=== PATIENT | male | born 1960 | race Caucasian/White ===

== ENCOUNTER 2020-01-11 08:11 | Inpatient (IN) | payer MEDICAID, OTHER ==
[~2020-01-11] VITALS: Ht 175.3 cm; Wt 82.6 kg
[2020-01-11 08:41] LABS: BASOPHILS % (AUTO) 0.4 % (0.0-2.0); EOSINOPHILS % (AUTO) 1.2 % (1.0-6.0); HEMATOCRIT 42.5 % (41-53); HEMOGLOBIN 14.9 g/dL (13.5-17.5); LYMPHOCYTES % (AUTO) 11.2 % (22.0-44.0); MEAN CORPUSCULAR HEMOGLOBIN 32.5 pg (26.0-34.0); MEAN CORPUSCULAR HGB CONC 34.9 G/dL (31.0-37.0); MEAN CORPUSCULAR VOLUME 93 fL (80-100); MONOCYTES # (AUTO) 0.8 K/uL (0.1-1.0); MONOCYTES % (AUTO) 9.4 % (2.0-9.0); NEUTROPHILS # (AUTO) 6.8 K/uL (1.8-7.7); NEUTROPHILS % (AUTO) 77.8 % (40.0-70.0); PLATELET COUNT (AUTO) 189 K/uL (150-450); RED BLOOD CELL COUNT(AUTO) 4.57 MIL/uL (4.50-5.90); RED CELL DISTRIBUTION WIDTH 12.8 % (11.5-14.5)
[2020-01-11 08:53] LABS: ANION GAP 11 mmol/L (8-16); CALCIUM, TOTAL 9.6 mg/dL (8.8-10.5); CARBON DIOXIDE 26 mmol/L (22-29); CHLORIDE 103 mmol/L (98-107); CREATININE 1.31 mg/dL (0.60-1.30); GLOMERULAR FILTR. RATE CALC 56 mL/min (>60); GLUCOSE,RANDOM 155 mg/dL (70-110); POTASSIUM 3.9 mmol/L (3.5-5.1); SODIUM SERUM 140 mmol/L (136-145); UREA NITROGEN, BLOOD 21 mg/dL (7-18)
[2020-01-11 08:59] LABS: ALANINE AMINOTRANSFERASE 24 U/L (12-78); ALBUMIN 3.7 g/dL (3.4-5.0); ALKALINE PHOSPHATASE 65 U/L (46-116); ASPARTATE AMINOTRANSFERASE 18 U/L (15-37); BILIRUBIN,TOTAL 0.7 mg/dL (0.1-1.0); TOTAL PROTEIN, SERUM 7.8 g/dL (6.4-8.2)
[2020-01-11] MEDS ORDERED: SODIUM CHLORIDE 0.9% 1,000 ML IV ONE (09:00)
[2020-01-11 09:18] LABS: CREATINE KINASE, TOTAL ONLY 45 U/L (39-308)
[2020-01-11 11:54] LABS: AMPHET/METH SCREEN,URINE NEGATIVE (NEGATIVE); BARBITURATE SCREEN, URINE NEGATIVE (NEGATIVE); BENZODIAZEPINES SCREEN,URINE NEGATIVE (NEGATIVE); CANNABINOID SCREEN,URINE NEGATIVE (NEGATIVE); COCAINE SCREEN,URINE NEGATIVE (NEGATIVE); METHADONE SCREEN, URINE NEGATIVE (NEGATIVE); OPIATE SCREEN,URINE NEGATIVE (NEGATIVE); PHENCYCLIDINE SCREEN,URINE NEGATIVE (NEGATIVE)
[2020-01-11] MEDS ORDERED: MetroNIDAZOLE 500 MG/NACL 100 ML IV ONE (12:15)
[2020-01-11] MEDS ORDERED: CefTRIAXone 1 GM/DEXTROSE 50 ML IV ONE (12:15)
[2020-01-11 12:30] LABS: APPEARANCE,URINE CLEAR (CLEAR); BILIRUBIN,URINE NEGATIVE (NEGATIVE); GLUCOSE, URINE (UA) NEGATIVE (NEGATIVE); KETONES,URINE TRACE mg/dL (NEGATIVE); LEUKOCYTE ESTERASE ,URINE NEGATIVE (NEGATIVE); NITRATE,URINE NEGATIVE (NEGATIVE); OCCULT BLOOD,URINE NEGATIVE (NEGATIVE); PH,URINE 6.5 (5.0-8.0); PROTEIN,URINE NEGATIVE (NEGATIVE)
[2020-01-11 12:47] LABS: BACTERIA,URINE None Seen /HPF (None Seen); RBC,URINE None Seen /HPF (0-2); WBC,URINE None Seen /HPF (0-5)
[2020-01-12] MEDS: ZOLPIDEM TARTRATE 10 MG TABLET PO PRN ×2 (00:32→22:36)
[2020-01-12] MEDS: LORazepam 2 MG TABLET PO PRN ×2 (01:28→17:47)
[2020-01-12 01:59] VITALS: BP 146/90
[2020-01-12] MEDS ORDERED: ALBUTEROL SULFATE HFA 90 MCG/PUFF 8 GM INHALER IH PRN (07:15)
[2020-01-12] MEDS ORDERED: DEXTROSE 50%-WATER 25 GM/50 ML SYRINGE IVP PRN (07:15)
[2020-01-12] MEDS ORDERED: OMEPRAZOLE 20 MG CAPSULE PO PRN (07:15)
[2020-01-12] MEDS ORDERED: DOCUSATE SODIUM 100 MG CAPSULE PO PRN (07:15)
[2020-01-12] MEDS ORDERED: BENZOCAINE/MENTHOL LOZENGE PO PRN (07:15)
[2020-01-12] MEDS ORDERED: BACITRACIN 28 GM OINTMENT TP PRN (07:15)
[2020-01-12] MEDS ORDERED: CloNIDine HCL 0.1 MG TABLET PO PRN (07:15)
[2020-01-12] MEDS ORDERED: MAG HYDROX/AL HYDROX/SIMETH ES 30 ML SUSPENSION UDCUP PO PRN (07:15)
[2020-01-12 07:19] LABS: CHOL/HDL RATIO 2.4 (4.2-7.3)
[2020-01-12] MEDS: LISINOPRIL 10 MG TABLET PO SCH (08:39)
[2020-01-12] MEDS: ASPIRIN 81 MG EC TABLET PO SCH (08:39)
[2020-01-12] MEDS: METOPROLOL TARTRATE 25 MG TABLET PO SCH ×2 (08:39→16:09)
[2020-01-12 08:48] VITALS: BP 175/72
[2020-01-12 11:34] LABS: GLUCOMETER DEV NAME(LOC) 3E.I 2; GLUCOSE,POINT OF CARE 116 MG/DL (70-110)
[2020-01-12] MEDS: INSULIN LISPRO 100 UNITS/ML SQ PRN ×2 (11:47→17:58)
[2020-01-12 16:04] VITALS: BP 182/101
[2020-01-12 17:15] VITALS: BP 153/98
[2020-01-12 17:20] LABS: GLUCOMETER DEV NAME(LOC) 3E.I 2; GLUCOSE,POINT OF CARE 141 MG/DL (70-110)
[2020-01-12 18:47] VITALS: BP 150/85
[2020-01-12] MEDS: ATORVASTATIN CALCIUM 20 MG TABLET PO SCH (20:32)
[2020-01-12 20:59] LABS: GLUCOMETER DEV NAME(LOC) 3E.I 2; GLUCOSE,POINT OF CARE 109 MG/DL (70-110)
[2020-01-13 05:53] LABS: GLUCOMETER DEV NAME(LOC) 3E.I 2; GLUCOSE,POINT OF CARE 101 MG/DL (70-110)
[2020-01-13] MEDS: METOPROLOL TARTRATE 25 MG TABLET PO SCH ×2 (09:41→17:16)
[2020-01-13] MEDS: HALOPERIDOL 5 MG TABLET PO PRN (09:41)
[2020-01-13] MEDS: LORazepam 2 MG TABLET PO PRN (09:41)
[2020-01-13] MEDS: QUEtiapine FUMARATE 25 MG TABLET PO SCH ×2 (09:41→17:16)
[2020-01-13] MEDS: ASPIRIN 81 MG EC TABLET PO SCH (09:41)
[2020-01-13] MEDS: LISINOPRIL 10 MG TABLET PO SCH (09:41)
[2020-01-13 10:06] VITALS: BP 153/98
[2020-01-13 12:20] LABS: GLUCOMETER DEV NAME(LOC) 3E.I 2; GLUCOSE,POINT OF CARE 84 MG/DL (70-110)
[2020-01-13 16:06] VITALS: BP_SYST 143; BP_SYST 173; BP_DIAS 81
[2020-01-13 17:31] LABS: GLUCOMETER DEV NAME(LOC) 3E.I 2; GLUCOSE,POINT OF CARE 87 MG/DL (70-110)
[2020-01-13] MEDS: ATORVASTATIN CALCIUM 20 MG TABLET PO SCH (20:52)
[2020-01-13 21:09] LABS: GLUCOMETER DEV NAME(LOC) 3E.I 2; GLUCOSE,POINT OF CARE 93 MG/DL (70-110)
[2020-01-14 05:45] LABS: GLUCOMETER DEV NAME(LOC) 3E.I 2; GLUCOSE,POINT OF CARE 79 MG/DL (70-110)
[2020-01-14 08:00] VITALS: BP 166/85
[2020-01-14] MEDS: ASPIRIN 81 MG EC TABLET PO SCH (08:57)
[2020-01-14] MEDS: LISINOPRIL 10 MG TABLET PO SCH (08:57)
[2020-01-14] MEDS: QUEtiapine FUMARATE 25 MG TABLET PO SCH ×2 (08:57→16:34)
[2020-01-14] MEDS: METOPROLOL TARTRATE 25 MG TABLET PO SCH ×2 (08:57→16:34)
[2020-01-14 11:45] LABS: GLUCOMETER DEV NAME(LOC) 3E.I 2; GLUCOSE,POINT OF CARE 106 MG/DL (70-110)
[2020-01-14 16:58] LABS: GLUCOMETER DEV NAME(LOC) 3E.I 2; GLUCOSE,POINT OF CARE 88 MG/DL (70-110)
[2020-01-14 18:24] VITALS: BP 156/89
[2020-01-14] MEDS: ATORVASTATIN CALCIUM 20 MG TABLET PO SCH (20:28)
[2020-01-14 20:44] LABS: GLUCOMETER DEV NAME(LOC) 3E.I 2; GLUCOSE,POINT OF CARE 109 MG/DL (70-110)
[2020-01-15 05:45] LABS: GLUCOMETER DEV NAME(LOC) 3E.I 2; GLUCOSE,POINT OF CARE 88 MG/DL (70-110)
[2020-01-15 08:53] VITALS: BP 176/98
[2020-01-15] MEDS: LISINOPRIL 10 MG TABLET PO SCH (09:34)
[2020-01-15] MEDS: METOPROLOL TARTRATE 25 MG TABLET PO SCH ×2 (09:34→16:11)
[2020-01-15] MEDS: QUEtiapine FUMARATE 25 MG TABLET PO SCH ×2 (09:34→16:11)
[2020-01-15] MEDS: ASPIRIN 81 MG EC TABLET PO SCH (09:34)
[2020-01-15 12:05] LABS: GLUCOMETER DEV NAME(LOC) 3E.I 2; GLUCOSE,POINT OF CARE 108 MG/DL (70-110)
[2020-01-15 16:26] VITALS: BP 126/75
[2020-01-15 17:10] LABS: GLUCOMETER DEV NAME(LOC) 3E.I 2; GLUCOSE,POINT OF CARE 84 MG/DL (70-110)
[2020-01-15] MEDS: ATORVASTATIN CALCIUM 20 MG TABLET PO SCH (20:58)
[2020-01-15 21:14] LABS: GLUCOMETER DEV NAME(LOC) 3E.I 2; GLUCOSE,POINT OF CARE 100 MG/DL (70-110)
[2020-01-16] MEDS: ZOLPIDEM TARTRATE 10 MG TABLET PO PRN (00:14)
[2020-01-16 05:31] LABS: GLUCOMETER DEV NAME(LOC) 3E.I 2; GLUCOSE,POINT OF CARE 95 MG/DL (70-110)
[2020-01-16] MEDS: ASPIRIN 81 MG EC TABLET PO SCH (08:29)
[2020-01-16] MEDS: LISINOPRIL 10 MG TABLET PO SCH (08:29)
[2020-01-16] MEDS: METOPROLOL TARTRATE 25 MG TABLET PO SCH ×2 (08:30→17:07)
[2020-01-16] MEDS: QUEtiapine FUMARATE 25 MG TABLET PO SCH ×2 (08:30→17:07)
[2020-01-16 16:18] VITALS: BP 126/65
[2020-01-16 17:38] LABS: GLUCOMETER DEV NAME(LOC) 3E.I 2; GLUCOSE,POINT OF CARE 92 MG/DL (70-110)
[2020-01-16] MEDS: ATORVASTATIN CALCIUM 20 MG TABLET PO SCH (20:17)
[2020-01-16 20:43] LABS: GLUCOMETER DEV NAME(LOC) 3E.I 2; GLUCOSE,POINT OF CARE 143 MG/DL (70-110)
[2020-01-16] MEDS: INSULIN LISPRO 100 UNITS/ML SQ PRN (21:00)
[2020-01-16] MEDS: ONDANSETRON HCL 4 MG TABLET PO PRN (23:47)
[2020-01-17] MEDS: ZOLPIDEM TARTRATE 10 MG TABLET PO PRN (00:01)
[2020-01-17 08:00] VITALS: BP 172/93
[2020-01-17] MEDS: LORazepam 2 MG TABLET PO PRN (08:46)
[2020-01-17] MEDS: QUEtiapine FUMARATE 25 MG TABLET PO SCH ×2 (08:46→16:51)
[2020-01-17] MEDS: ASPIRIN 81 MG EC TABLET PO SCH (08:46)
[2020-01-17] MEDS: LISINOPRIL 10 MG TABLET PO SCH (08:46)
[2020-01-17] MEDS: METOPROLOL TARTRATE 25 MG TABLET PO SCH ×2 (08:46→16:51)
[2020-01-17] MEDS: HALOPERIDOL 5 MG TABLET PO PRN (08:47)
[2020-01-17 11:39] LABS: GLUCOMETER DEV NAME(LOC) 3E.I 2; GLUCOSE,POINT OF CARE 88 MG/DL (70-110)
[2020-01-17 16:52] VITALS: BP 125/69
[2020-01-17 17:04] LABS: GLUCOMETER DEV NAME(LOC) 3E.I 2; GLUCOSE,POINT OF CARE 81 MG/DL (70-110)
[2020-01-17] MEDS: ATORVASTATIN CALCIUM 20 MG TABLET PO SCH (20:32)
[2020-01-17 21:07] LABS: GLUCOMETER DEV NAME(LOC) 3E.I 2; GLUCOSE,POINT OF CARE 97 MG/DL (70-110)
[2020-01-18 04:04] VITALS: BP 131/71
[2020-01-18] MEDS: LORazepam 2 MG TABLET PO PRN (04:05)
[2020-01-18] MEDS: HALOPERIDOL 5 MG TABLET PO PRN (04:05)
[2020-01-18 05:40] LABS: GLUCOMETER DEV NAME(LOC) 3E.I 2; GLUCOSE,POINT OF CARE 85 MG/DL (70-110)
[2020-01-18 08:00] VITALS: BP 110/68
[2020-01-18] MEDS: METOPROLOL TARTRATE 25 MG TABLET PO SCH ×2 (11:09→17:00)
[2020-01-18] MEDS: ASPIRIN 81 MG EC TABLET PO SCH (11:09)
[2020-01-18] MEDS: LISINOPRIL 10 MG TABLET PO SCH (11:09)
[2020-01-18] MEDS: QUEtiapine FUMARATE 25 MG TABLET PO SCH ×2 (11:09→17:00)
[2020-01-18 11:39] LABS: GLUCOMETER DEV NAME(LOC) 3E.I 2; GLUCOSE,POINT OF CARE 81 MG/DL (70-110)
[2020-01-18 16:10] VITALS: BP 131/76
[2020-01-18 17:03] LABS: GLUCOMETER DEV NAME(LOC) 3E.I 2; GLUCOSE,POINT OF CARE 127 MG/DL (70-110)
[2020-01-18 20:58] LABS: GLUCOMETER DEV NAME(LOC) 3E.I 2; GLUCOSE,POINT OF CARE 92 MG/DL (70-110)
[2020-01-18] MEDS: ATORVASTATIN CALCIUM 20 MG TABLET PO SCH (21:01)
[2020-01-18] MEDS: ZOLPIDEM TARTRATE 10 MG TABLET PO PRN (21:11)
[2020-01-19 05:49] LABS: GLUCOMETER DEV NAME(LOC) 3E.I 2; GLUCOSE,POINT OF CARE 90 MG/DL (70-110)
[2020-01-19] MEDS: HALOPERIDOL 5 MG TABLET PO PRN (08:40)
[2020-01-19] MEDS: QUEtiapine FUMARATE 25 MG TABLET PO SCH ×2 (08:40→16:02)
[2020-01-19] MEDS: LORazepam 2 MG TABLET PO PRN (08:40)
[2020-01-19] MEDS: LISINOPRIL 10 MG TABLET PO SCH (08:40)
[2020-01-19] MEDS: ASPIRIN 81 MG EC TABLET PO SCH (08:40)
[2020-01-19] MEDS: METOPROLOL TARTRATE 25 MG TABLET PO SCH ×2 (08:41→16:02)
[2020-01-19 11:24] LABS: GLUCOMETER DEV NAME(LOC) 3E.I 2; GLUCOSE,POINT OF CARE 89 MG/DL (70-110)
[2020-01-19 13:36] VITALS: BP 124/76
[2020-01-19 16:31] VITALS: BP 151/76
[2020-01-19 17:25] LABS: GLUCOMETER DEV NAME(LOC) 3E.I 2; GLUCOSE,POINT OF CARE 87 MG/DL (70-110)
[2020-01-19] MEDS: ATORVASTATIN CALCIUM 20 MG TABLET PO SCH (20:00)
[2020-01-19] MEDS: INSULIN LISPRO 100 UNITS/ML SQ PRN (21:26)
[2020-01-19 21:30] LABS: GLUCOMETER DEV NAME(LOC) 3E.I 2; GLUCOSE,POINT OF CARE 157 MG/DL (70-110)
[2020-01-19] MEDS: ZOLPIDEM TARTRATE 10 MG TABLET PO PRN (22:20)
[2020-01-20 03:26] VITALS: BP 132/82
[2020-01-20] MEDS: LORazepam 2 MG TABLET PO PRN ×2 (03:29→08:48)
[2020-01-20] MEDS: HALOPERIDOL 5 MG TABLET PO PRN ×2 (03:29→08:48)
[2020-01-20 05:55] LABS: GLUCOMETER DEV NAME(LOC) 3E.I 2; GLUCOSE,POINT OF CARE 92 MG/DL (70-110)
[2020-01-20 08:00] VITALS: BP 152/74
[2020-01-20] MEDS: LISINOPRIL 10 MG TABLET PO SCH (08:47)
[2020-01-20] MEDS: METOPROLOL TARTRATE 25 MG TABLET PO SCH ×2 (08:48→16:17)
[2020-01-20] MEDS: ASPIRIN 81 MG EC TABLET PO SCH (08:48)
[2020-01-20] MEDS: QUEtiapine FUMARATE 25 MG TABLET PO SCH ×2 (08:48→16:17)
[2020-01-20 12:09] LABS: GLUCOMETER DEV NAME(LOC) 3E.I 2; GLUCOSE,POINT OF CARE 85 MG/DL (70-110)
[2020-01-20 16:57] VITALS: BP 143/56
[2020-01-20 17:19] LABS: GLUCOMETER DEV NAME(LOC) 3E.I 2; GLUCOSE,POINT OF CARE 109 MG/DL (70-110)
[2020-01-20] MEDS: ATORVASTATIN CALCIUM 20 MG TABLET PO SCH (20:53)
[2020-01-20 21:48] LABS: GLUCOMETER DEV NAME(LOC) 3E.I 2; GLUCOSE,POINT OF CARE 95 MG/DL (70-110)
[2020-01-21 05:28] LABS: GLUCOMETER DEV NAME(LOC) 3E.I 2; GLUCOSE,POINT OF CARE 84 MG/DL (70-110)
[2020-01-21] MEDS: INSULIN LISPRO 100 UNITS/ML SQ PRN ×2 (07:06→11:47)
[2020-01-21] MEDS: METOPROLOL TARTRATE 25 MG TABLET PO SCH ×2 (08:22→16:45)
[2020-01-21] MEDS: ASPIRIN 81 MG EC TABLET PO SCH (08:23)
[2020-01-21] MEDS: QUEtiapine FUMARATE 25 MG TABLET PO SCH ×2 (08:23→16:45)
[2020-01-21] MEDS: LORazepam 2 MG TABLET PO PRN (08:24)
[2020-01-21] MEDS: LISINOPRIL 20 MG TABLET PO SCH (08:27)
[2020-01-21] MEDS: LOPERAMIDE HCL 2 MG CAPSULE PO PRN ×2 (09:49→11:44)
[2020-01-21 10:31] VITALS: BP 129/68
[2020-01-21] MEDS: ONDANSETRON HCL 4 MG TABLET PO PRN (11:44)
[2020-01-21 11:54] LABS: GLUCOMETER DEV NAME(LOC) 3E.I 2; GLUCOSE,POINT OF CARE 95 MG/DL (70-110)
[2020-01-21 13:16] VITALS: BP 110/70
[2020-01-21 16:18] VITALS: BP 128/71
[2020-01-21 19:28] LABS: GLUCOMETER DEV NAME(LOC) 3E.I 2; GLUCOSE,POINT OF CARE 123 MG/DL (70-110)
[2020-01-21] MEDS: ATORVASTATIN CALCIUM 20 MG TABLET PO SCH (20:28)
[2020-01-21 22:11] LABS: GLUCOMETER DEV NAME(LOC) 3E.I 2; GLUCOSE,POINT OF CARE 91 MG/DL (70-110)
[2020-01-21] MEDS: IBUPROFEN 600 MG TABLET PO PRN (23:20)
[2020-01-22] MEDS: QUEtiapine FUMARATE 25 MG TABLET PO SCH ×2 (10:00→17:09)
[2020-01-22] MEDS: METOPROLOL TARTRATE 25 MG TABLET PO SCH ×2 (10:01→17:00)
[2020-01-22] MEDS: LISINOPRIL 20 MG TABLET PO SCH (10:01)
[2020-01-22] MEDS: ASPIRIN 81 MG EC TABLET PO SCH (10:02)
[2020-01-22 11:19] VITALS: BP 129/92
[2020-01-22 11:32] LABS: GLUCOMETER DEV NAME(LOC) 3E.I 2; GLUCOSE,POINT OF CARE 91 MG/DL (70-110)
[2020-01-22 16:42] VITALS: BP 100/57
[2020-01-22] MEDS: INSULIN LISPRO 100 UNITS/ML SQ PRN (17:46)
[2020-01-22] MEDS: ATORVASTATIN CALCIUM 20 MG TABLET PO SCH (20:05)
[2020-01-22 20:21] LABS: GLUCOMETER DEV NAME(LOC) 3E.I 2; GLUCOSE,POINT OF CARE 90 MG/DL (70-110)
[2020-01-23] MEDS: LORazepam 2 MG TABLET PO PRN (04:33)
[2020-01-23] MEDS: HALOPERIDOL 5 MG TABLET PO PRN (04:33)
[2020-01-23 05:59] LABS: GLUCOMETER DEV NAME(LOC) 3E.I 2; GLUCOSE,POINT OF CARE 96 MG/DL (70-110)
[2020-01-23 09:30] VITALS: BP 131/62
[2020-01-23] MEDS: LISINOPRIL 20 MG TABLET PO SCH (09:54)
[2020-01-23] MEDS: QUEtiapine FUMARATE 25 MG TABLET PO SCH ×2 (09:54→16:30)
[2020-01-23] MEDS: ASPIRIN 81 MG EC TABLET PO SCH (09:54)
[2020-01-23] MEDS: METOPROLOL TARTRATE 25 MG TABLET PO SCH ×2 (09:55→16:30)
[2020-01-23] MEDS: ONDANSETRON HCL 4 MG TABLET PO PRN (10:02)
[2020-01-23 12:09] LABS: GLUCOMETER DEV NAME(LOC) 3E.I 2; GLUCOSE,POINT OF CARE 110 MG/DL (70-110)
[2020-01-23 16:05] VITALS: BP 120/75
[2020-01-23 16:48] LABS: GLUCOMETER DEV NAME(LOC) 3E.I 2; GLUCOSE,POINT OF CARE 89 MG/DL (70-110)
[2020-01-23] MEDS: ATORVASTATIN CALCIUM 20 MG TABLET PO SCH (20:27)
[2020-01-23 21:28] LABS: GLUCOMETER DEV NAME(LOC) 3E.I 2; GLUCOSE,POINT OF CARE 90 MG/DL (70-110)
[2020-01-24] MEDS: LORazepam 2 MG TABLET PO PRN ×2 (03:37→18:37)
[2020-01-24] MEDS: HALOPERIDOL 5 MG TABLET PO PRN ×2 (03:37→18:40)
[2020-01-24 03:59] VITALS: BP 131/78
[2020-01-24 05:55] LABS: GLUCOMETER DEV NAME(LOC) 3E.I 2; GLUCOSE,POINT OF CARE 105 MG/DL (70-110)
[2020-01-24 09:12] VITALS: BP 140/87
[2020-01-24 09:14] VITALS: BP 111/68
[2020-01-24] MEDS: ASPIRIN 81 MG EC TABLET PO SCH (11:19)
[2020-01-24] MEDS: LISINOPRIL 20 MG TABLET PO SCH (11:19)
[2020-01-24] MEDS: METOPROLOL TARTRATE 25 MG TABLET PO SCH ×2 (11:19→17:00)
[2020-01-24] MEDS: QUEtiapine FUMARATE 25 MG TABLET PO SCH ×2 (11:19→16:28)
[2020-01-24 12:09] LABS: GLUCOMETER DEV NAME(LOC) 3E.I 2; GLUCOSE,POINT OF CARE 121 MG/DL (70-110)
[2020-01-24 16:32] LABS: GLUCOMETER DEV NAME(LOC) 3E.I 2; GLUCOSE,POINT OF CARE 88 MG/DL (70-110)
[2020-01-24 16:43] VITALS: BP 103/43
[2020-01-24] MEDS: ATORVASTATIN CALCIUM 20 MG TABLET PO SCH (20:15)
[2020-01-24] MEDS: INSULIN LISPRO 100 UNITS/ML SQ PRN (21:19)
[2020-01-25] MEDS: ZOLPIDEM TARTRATE 10 MG TABLET PO PRN (02:43)
[2020-01-25 06:30] LABS: GLUCOMETER DEV NAME(LOC) 3E.I 2; GLUCOSE,POINT OF CARE 81 MG/DL (70-110)
[2020-01-25 08:14] VITALS: BP 130/78
[2020-01-25] MEDS: LOPERAMIDE HCL 2 MG CAPSULE PO PRN (09:11)
[2020-01-25] MEDS: IBUPROFEN 600 MG TABLET PO PRN ×2 (09:11→22:03)
[2020-01-25] MEDS: LISINOPRIL 20 MG TABLET PO SCH (09:12)
[2020-01-25] MEDS: METOPROLOL TARTRATE 25 MG TABLET PO SCH ×2 (09:12→16:18)
[2020-01-25] MEDS: QUEtiapine FUMARATE 25 MG TABLET PO SCH ×2 (09:12→16:18)
[2020-01-25] MEDS: ASPIRIN 81 MG EC TABLET PO SCH (09:12)
[2020-01-25 11:59] LABS: GLUCOMETER DEV NAME(LOC) 3E.I 2; GLUCOSE,POINT OF CARE 86 MG/DL (70-110)
[2020-01-25 16:12] VITALS: BP 109/68
[2020-01-25 17:15] LABS: GLUCOMETER DEV NAME(LOC) 3E.I 2; GLUCOSE,POINT OF CARE 84 MG/DL (70-110)
[2020-01-25] MEDS: LORazepam 2 MG TABLET PO PRN (19:58)
[2020-01-25] MEDS: HALOPERIDOL 5 MG TABLET PO PRN (19:58)
[2020-01-25] MEDS: ATORVASTATIN CALCIUM 20 MG TABLET PO SCH (20:00)
[2020-01-25 22:10] LABS: GLUCOMETER DEV NAME(LOC) 3E.I 2; GLUCOSE,POINT OF CARE 103 MG/DL (70-110)
[2020-01-26 05:31] LABS: GLUCOMETER DEV NAME(LOC) 3E.I 2; GLUCOSE,POINT OF CARE 87 MG/DL (70-110)
[2020-01-26] MEDS: METOPROLOL TARTRATE 25 MG TABLET PO SCH ×2 (08:26→16:24)
[2020-01-26] MEDS: LISINOPRIL 20 MG TABLET PO SCH (08:27)
[2020-01-26] MEDS: ASPIRIN 81 MG EC TABLET PO SCH (08:27)
[2020-01-26] MEDS: IBUPROFEN 600 MG TABLET PO PRN (08:27)
[2020-01-26] MEDS: QUEtiapine FUMARATE 25 MG TABLET PO SCH ×2 (08:27→16:24)
[2020-01-26 08:32] VITALS: BP 128/69
[2020-01-26 11:38] LABS: GLUCOMETER DEV NAME(LOC) 3E.I 2; GLUCOSE,POINT OF CARE 117 MG/DL (70-110)
[2020-01-26 16:14] VITALS: BP 131/78
[2020-01-26 16:59] LABS: GLUCOMETER DEV NAME(LOC) 3E.I 2; GLUCOSE,POINT OF CARE 144 MG/DL (70-110)
[2020-01-26] MEDS: INSULIN LISPRO 100 UNITS/ML SQ PRN (17:46)
[2020-01-26] MEDS: MAGNESIUM HYDROXIDE SUSPENSION 30 ML UDCUP PO PRN (19:44)
[2020-01-26] MEDS: ATORVASTATIN CALCIUM 20 MG TABLET PO SCH (20:39)
[2020-01-26] MEDS: ZOLPIDEM TARTRATE 10 MG TABLET PO PRN (21:06)
[2020-01-26 21:48] LABS: GLUCOMETER DEV NAME(LOC) 3E.I 2; GLUCOSE,POINT OF CARE 113 MG/DL (70-110)
[2020-01-27] MEDS: LOPERAMIDE HCL 2 MG CAPSULE PO PRN ×2 (02:35→12:45)
[2020-01-27 06:03] LABS: GLUCOMETER DEV NAME(LOC) 3E.I 2; GLUCOSE,POINT OF CARE 109 MG/DL (70-110)
[2020-01-27 08:00] VITALS: BP 117/78
[2020-01-27] MEDS: LISINOPRIL 20 MG TABLET PO SCH (09:27)
[2020-01-27] MEDS: QUEtiapine FUMARATE 25 MG TABLET PO SCH ×2 (09:27→16:10)
[2020-01-27] MEDS: ASPIRIN 81 MG EC TABLET PO SCH (09:28)
[2020-01-27] MEDS: METOPROLOL TARTRATE 25 MG TABLET PO SCH ×2 (09:28→16:09)
[2020-01-27 12:55] LABS: GLUCOMETER DEV NAME(LOC) 3E.I 2; GLUCOSE,POINT OF CARE 115 MG/DL (70-110)
[2020-01-27 16:10] VITALS: BP 145/78
[2020-01-27 16:34] LABS: GLUCOMETER DEV NAME(LOC) 3E.I 2; GLUCOSE,POINT OF CARE 100 MG/DL (70-110)
[2020-01-27 18:33] LABS: APPEARANCE,URINE CLEAR (CLEAR); BILIRUBIN,URINE NEGATIVE (NEGATIVE); GLUCOSE, URINE (UA) NEGATIVE (NEGATIVE); KETONES,URINE NEGATIVE (NEGATIVE); LEUKOCYTE ESTERASE ,URINE NEGATIVE (NEGATIVE); NITRATE,URINE NEGATIVE (NEGATIVE); OCCULT BLOOD,URINE NEGATIVE (NEGATIVE); PROTEIN,URINE NEGATIVE (NEGATIVE); UROBILINOGEN,URINE 0.2 mg/dL (<=1.0)
[2020-01-27] MEDS: ATORVASTATIN CALCIUM 20 MG TABLET PO SCH (20:01)
[2020-01-27 21:10] LABS: GLUCOMETER DEV NAME(LOC) 3E.I 2; GLUCOSE,POINT OF CARE 113 MG/DL (70-110)
[2020-01-27] MEDS: ZOLPIDEM TARTRATE 10 MG TABLET PO PRN (22:49)
[2020-01-28 05:36] LABS: GLUCOMETER DEV NAME(LOC) 3E.I 2; GLUCOSE,POINT OF CARE 90 MG/DL (70-110)
[2020-01-28 08:16] VITALS: BP 119/57
[2020-01-28] MEDS: QUEtiapine FUMARATE 25 MG TABLET PO SCH ×2 (10:39→16:18)
[2020-01-28] MEDS: ASPIRIN 81 MG EC TABLET PO SCH (10:39)
[2020-01-28] MEDS: LISINOPRIL 20 MG TABLET PO SCH (10:39)
[2020-01-28] MEDS: METOPROLOL TARTRATE 25 MG TABLET PO SCH ×2 (10:39→16:19)
[2020-01-28 12:27] LABS: GLUCOMETER DEV NAME(LOC) 3E.I 2; GLUCOSE,POINT OF CARE 91 MG/DL (70-110)
[2020-01-28 16:33] VITALS: BP 117/57
[2020-01-28 17:05] LABS: GLUCOMETER DEV NAME(LOC) 3E.I 2; GLUCOSE,POINT OF CARE 158 MG/DL (70-110)
[2020-01-28] MEDS: INSULIN LISPRO 100 UNITS/ML SQ PRN (17:32)
[2020-01-28] MEDS: ZOLPIDEM TARTRATE 10 MG TABLET PO PRN (20:05)
[2020-01-28] MEDS: ATORVASTATIN CALCIUM 20 MG TABLET PO SCH (20:05)
[2020-01-28] MEDS: LORazepam 2 MG TABLET PO PRN (21:20)
[2020-01-28 21:26] LABS: GLUCOMETER DEV NAME(LOC) 3E.I 2; GLUCOSE,POINT OF CARE 84 MG/DL (70-110)
[2020-01-29 06:10] LABS: GLUCOMETER DEV NAME(LOC) 3E.I 2; GLUCOSE,POINT OF CARE 85 MG/DL (70-110)
[2020-01-29 09:28] VITALS: BP 119/62
[2020-01-29] MEDS: LISINOPRIL 20 MG TABLET PO SCH (10:29)
[2020-01-29] MEDS: ASPIRIN 81 MG EC TABLET PO SCH (10:29)
[2020-01-29] MEDS: METOPROLOL TARTRATE 25 MG TABLET PO SCH ×2 (10:29→16:03)
[2020-01-29] MEDS: QUEtiapine FUMARATE 25 MG TABLET PO SCH ×2 (10:30→20:06)
[2020-01-29 16:00] VITALS: BP 119/67
[2020-01-29 17:19] LABS: GLUCOMETER DEV NAME(LOC) 3E.I 2; GLUCOSE,POINT OF CARE 75 MG/DL (70-110)
[2020-01-29] MEDS: ATORVASTATIN CALCIUM 20 MG TABLET PO SCH (20:05)
[2020-01-29 21:06] LABS: GLUCOMETER DEV NAME(LOC) 3E.I 2; GLUCOSE,POINT OF CARE 86 MG/DL (70-110)
[2020-01-29] MEDS: ZOLPIDEM TARTRATE 10 MG TABLET PO PRN (22:04)
[2020-01-30 05:49] LABS: GLUCOMETER DEV NAME(LOC) 3E.I 2; GLUCOSE,POINT OF CARE 84 MG/DL (70-110)
[2020-01-30 08:00] VITALS: BP_SYST 19
[2020-01-30] MEDS: METOPROLOL TARTRATE 25 MG TABLET PO SCH ×2 (09:14→16:01)
[2020-01-30] MEDS: LISINOPRIL 20 MG TABLET PO SCH (09:14)
[2020-01-30] MEDS: ASPIRIN 81 MG EC TABLET PO SCH (09:15)
[2020-01-30] MEDS: QUEtiapine FUMARATE 25 MG TABLET PO SCH ×2 (09:15→20:00)
[2020-01-30 12:08] LABS: GLUCOMETER DEV NAME(LOC) 3E.I 2; GLUCOSE,POINT OF CARE 88 MG/DL (70-110)
[2020-01-30 16:15] VITALS: BP 140/80
[2020-01-30] MEDS: ATORVASTATIN CALCIUM 20 MG TABLET PO SCH (20:01)
[2020-01-30 20:16] LABS: GLUCOMETER DEV NAME(LOC) 3E.I 2; GLUCOSE,POINT OF CARE 88 MG/DL (70-110)
[2020-01-30] MEDS: ZOLPIDEM TARTRATE 10 MG TABLET PO PRN (22:32)
[2020-01-31 06:03] VITALS: BP 150/74
[2020-01-31 06:14] LABS: GLUCOMETER DEV NAME(LOC) 3E.I 2; GLUCOSE,POINT OF CARE 85 MG/DL (70-110)
[2020-01-31 09:18] VITALS: BP 149/82
[2020-01-31] MEDS: METOPROLOL TARTRATE 25 MG TABLET PO SCH ×2 (09:35→16:51)
[2020-01-31] MEDS: LISINOPRIL 20 MG TABLET PO SCH (09:35)
[2020-01-31] MEDS: ASPIRIN 81 MG EC TABLET PO SCH (09:35)
[2020-01-31] MEDS: QUEtiapine FUMARATE 25 MG TABLET PO SCH ×2 (09:36→20:14)
[2020-01-31 12:02] LABS: GLUCOMETER DEV NAME(LOC) 3E.I 2; GLUCOSE,POINT OF CARE 90 MG/DL (70-110)
[2020-01-31] MEDS: HALOPERIDOL 5 MG TABLET PO PRN (12:56)
[2020-01-31] MEDS: LORazepam 2 MG TABLET PO PRN (12:56)
[2020-01-31 16:16] VITALS: BP 130/80
[2020-01-31 18:26] LABS: GLUCOMETER DEV NAME(LOC) 3E.I 2; GLUCOSE,POINT OF CARE 129 MG/DL (70-110)
[2020-01-31] MEDS: ATORVASTATIN CALCIUM 20 MG TABLET PO SCH (20:14)
[2020-01-31 21:16] LABS: GLUCOMETER DEV NAME(LOC) 3E.I 2; GLUCOSE,POINT OF CARE 108 MG/DL (70-110)
[2020-02-01 05:43] LABS: GLUCOMETER DEV NAME(LOC) 3E.I 2; GLUCOSE,POINT OF CARE 85 MG/DL (70-110)
[2020-02-01 08:01] VITALS: BP_SYST 119; BP_SYST 96; BP_DIAS 58; BP_DIAS 64
[2020-02-01] MEDS: ASPIRIN 81 MG EC TABLET PO SCH (10:01)
[2020-02-01] MEDS: QUEtiapine FUMARATE 25 MG TABLET PO SCH ×2 (10:02→20:20)
[2020-02-01] MEDS: METOPROLOL TARTRATE 25 MG TABLET PO SCH ×2 (10:24→16:30)
[2020-02-01] MEDS: LISINOPRIL 10 MG TABLET PO SCH (10:24)
[2020-02-01 11:49] LABS: GLUCOMETER DEV NAME(LOC) 3E.I 2; GLUCOSE,POINT OF CARE 104 MG/DL (70-110)
[2020-02-01] MEDS: MAGNESIUM HYDROXIDE SUSPENSION 30 ML UDCUP PO PRN (12:02)
[2020-02-01 12:03] VITALS: BP 140/72
[2020-02-01] MEDS: INSULIN LISPRO 100 UNITS/ML SQ PRN (12:11)
[2020-02-01] MEDS: IBUPROFEN 600 MG TABLET PO PRN (14:05)
[2020-02-01 16:00] VITALS: BP 115/65
[2020-02-01 17:53] LABS: GLUCOMETER DEV NAME(LOC) 3E.I 2; GLUCOSE,POINT OF CARE 109 MG/DL (70-110)
[2020-02-01] MEDS: ATORVASTATIN CALCIUM 20 MG TABLET PO SCH (20:19)
[2020-02-01 20:38] VITALS: BP 118/68
[2020-02-01] MEDS: HALOPERIDOL 5 MG TABLET PO PRN (21:56)
[2020-02-01] MEDS: ZOLPIDEM TARTRATE 10 MG TABLET PO PRN (21:57)
[2020-02-01 22:10] LABS: GLUCOMETER DEV NAME(LOC) 3E.I 2; GLUCOSE,POINT OF CARE 85 MG/DL (70-110)
[2020-02-02] VITALS: BP 135/70
[2020-02-02 05:47] LABS: GLUCOMETER DEV NAME(LOC) 3E.I 2; GLUCOSE,POINT OF CARE 81 MG/DL (70-110)
[2020-02-02 06:45] VITALS: BP 125/78
[2020-02-02] MEDS: LORazepam 2 MG TABLET PO PRN (06:51)
[2020-02-02 08:31] VITALS: BP 144/96
[2020-02-02] MEDS: LISINOPRIL 10 MG TABLET PO SCH (09:14)
[2020-02-02] MEDS: QUEtiapine FUMARATE 25 MG TABLET PO SCH ×2 (09:14→20:13)
[2020-02-02] MEDS: METOPROLOL TARTRATE 25 MG TABLET PO SCH ×2 (09:14→16:15)
[2020-02-02] MEDS: HALOPERIDOL 5 MG TABLET PO PRN (09:14)
[2020-02-02] MEDS: MAGNESIUM HYDROXIDE SUSPENSION 30 ML UDCUP PO PRN (09:14)
[2020-02-02] MEDS: ASPIRIN 81 MG EC TABLET PO SCH (09:15)
[2020-02-02 11:19] LABS: GLUCOMETER DEV NAME(LOC) 3E.I 2; GLUCOSE,POINT OF CARE 90 MG/DL (70-110)
[2020-02-02] MEDS: INSULIN LISPRO 100 UNITS/ML SQ PRN (12:18)
[2020-02-02 16:00] VITALS: BP 128/86
[2020-02-02 17:12] LABS: GLUCOMETER DEV NAME(LOC) 3E.I 2; GLUCOSE,POINT OF CARE 94 MG/DL (70-110)
[2020-02-02] MEDS: ATORVASTATIN CALCIUM 20 MG TABLET PO SCH (20:13)
[2020-02-02] MEDS: ZOLPIDEM TARTRATE 10 MG TABLET PO PRN (21:36)
[2020-02-02 21:59] LABS: GLUCOMETER DEV NAME(LOC) 3E.I 2; GLUCOSE,POINT OF CARE 95 MG/DL (70-110)
[2020-02-03 05:44] LABS: GLUCOMETER DEV NAME(LOC) 3E.I 2; GLUCOSE,POINT OF CARE 80 MG/DL (70-110)
[2020-02-03 08:00] VITALS: BP 156/97
[2020-02-03] MEDS: ASPIRIN 81 MG EC TABLET PO SCH (08:39)
[2020-02-03] MEDS: METOPROLOL TARTRATE 25 MG TABLET PO SCH ×2 (08:39→16:50)
[2020-02-03] MEDS: LORazepam 2 MG TABLET PO PRN (08:39)
[2020-02-03] MEDS: LISINOPRIL 10 MG TABLET PO SCH (08:39)
[2020-02-03] MEDS: QUEtiapine FUMARATE 25 MG TABLET PO SCH ×2 (08:40→20:26)
[2020-02-03] MEDS: MAGNESIUM HYDROXIDE SUSPENSION 30 ML UDCUP PO PRN (11:30)
[2020-02-03 11:41] LABS: GLUCOMETER DEV NAME(LOC) 3E.I 2; GLUCOSE,POINT OF CARE 103 MG/DL (70-110)
[2020-02-03] MEDS: INSULIN LISPRO 100 UNITS/ML SQ PRN (12:13)
[2020-02-03 16:00] VITALS: BP 123/70
[2020-02-03 17:39] LABS: GLUCOMETER DEV NAME(LOC) 3E.I 2; GLUCOSE,POINT OF CARE 105 MG/DL (70-110)
[2020-02-03] MEDS: ATORVASTATIN CALCIUM 20 MG TABLET PO SCH (20:25)
[2020-02-03 20:44] LABS: GLUCOMETER DEV NAME(LOC) 3E.I 2; GLUCOSE,POINT OF CARE 90 MG/DL (70-110)
[2020-02-03] MEDS: ZOLPIDEM TARTRATE 10 MG TABLET PO PRN (21:37)
[2020-02-04 05:45] VITALS: BP 140/98
[2020-02-04] MEDS: LORazepam 2 MG TABLET PO PRN (05:55)
[2020-02-04 05:57] LABS: GLUCOMETER DEV NAME(LOC) 3E.I 2; GLUCOSE,POINT OF CARE 81 MG/DL (70-110)
[2020-02-04] MEDS: INSULIN LISPRO 100 UNITS/ML SQ PRN ×2 (06:42→21:09)
[2020-02-04] MEDS: LISINOPRIL 10 MG TABLET PO SCH (08:09)
[2020-02-04] MEDS: HALOPERIDOL 5 MG TABLET PO PRN (08:09)
[2020-02-04] MEDS: QUEtiapine FUMARATE 25 MG TABLET PO SCH ×2 (08:09→20:15)
[2020-02-04] MEDS: ASPIRIN 81 MG EC TABLET PO SCH (08:10)
[2020-02-04] MEDS: METOPROLOL TARTRATE 25 MG TABLET PO SCH ×2 (08:10→17:32)
[2020-02-04 09:13] VITALS: BP 123/74
[2020-02-04 11:18] LABS: GLUCOMETER DEV NAME(LOC) 3E.I 2; GLUCOSE,POINT OF CARE 111 MG/DL (70-110)
[2020-02-04 16:01] VITALS: BP 109/69
[2020-02-04 16:21] LABS: GLUCOMETER DEV NAME(LOC) 3E.I 2; GLUCOSE,POINT OF CARE 127 MG/DL (70-110)
[2020-02-04 17:31] VITALS: BP 159/75
[2020-02-04] MEDS: MAGNESIUM HYDROXIDE SUSPENSION 30 ML UDCUP PO PRN (19:26)
[2020-02-04] MEDS: ATORVASTATIN CALCIUM 20 MG TABLET PO SCH (20:15)
[2020-02-04] MEDS: ZOLPIDEM TARTRATE 10 MG TABLET PO PRN (20:44)
[2020-02-04 20:47] LABS: GLUCOMETER DEV NAME(LOC) 3E.I 2; GLUCOSE,POINT OF CARE 141 MG/DL (70-110)
[2020-02-05 05:38] LABS: GLUCOMETER DEV NAME(LOC) 3E.I 2; GLUCOSE,POINT OF CARE 77 MG/DL (70-110)
[2020-02-05] MEDS: ASPIRIN 81 MG EC TABLET PO SCH (08:22)
[2020-02-05] MEDS: LORazepam 2 MG TABLET PO PRN (08:22)
[2020-02-05] MEDS: QUEtiapine FUMARATE 25 MG TABLET PO SCH ×2 (08:22→20:47)
[2020-02-05] MEDS: LISINOPRIL 10 MG TABLET PO SCH (08:23)
[2020-02-05] MEDS: METOPROLOL TARTRATE 25 MG TABLET PO SCH ×2 (08:23→17:08)
[2020-02-05 08:46] VITALS: BP 158/71
[2020-02-05 11:55] LABS: GLUCOMETER DEV NAME(LOC) 3E.I 2; GLUCOSE,POINT OF CARE 93 MG/DL (70-110)
[2020-02-05] MEDS: INSULIN LISPRO 100 UNITS/ML SQ PRN (14:11)
[2020-02-05 16:06] VITALS: BP 134/64
[2020-02-05 16:58] LABS: GLUCOMETER DEV NAME(LOC) 3E.I 2; GLUCOSE,POINT OF CARE 113 MG/DL (70-110)
[2020-02-05 20:17] LABS: GLUCOMETER DEV NAME(LOC) 3E.I 2; GLUCOSE,POINT OF CARE 116 MG/DL (70-110)
[2020-02-05] MEDS: ATORVASTATIN CALCIUM 20 MG TABLET PO SCH (20:46)
[2020-02-05 21:19] VITALS: BP 130/66
[2020-02-05] MEDS: IBUPROFEN 600 MG TABLET PO PRN (21:23)
[2020-02-05] MEDS: ZOLPIDEM TARTRATE 10 MG TABLET PO PRN (23:07)
[2020-02-06 05:42] LABS: GLUCOMETER DEV NAME(LOC) 3E.I 2; GLUCOSE,POINT OF CARE 81 MG/DL (70-110)
[2020-02-06] MEDS: LISINOPRIL 10 MG TABLET PO SCH (08:16)
[2020-02-06] MEDS: ASPIRIN 81 MG EC TABLET PO SCH (08:16)
[2020-02-06] MEDS: QUEtiapine FUMARATE 25 MG TABLET PO SCH ×2 (08:16→20:15)
[2020-02-06] MEDS: HALOPERIDOL 5 MG TABLET PO PRN (08:16)
[2020-02-06] MEDS: METOPROLOL TARTRATE 25 MG TABLET PO SCH ×2 (08:17→16:32)
[2020-02-06] MEDS: LORazepam 2 MG TABLET PO PRN (08:17)
[2020-02-06 09:35] VITALS: BP 134/98
[2020-02-06] MEDS: IBUPROFEN 600 MG TABLET PO PRN (09:35)
[2020-02-06 11:35] LABS: GLUCOMETER DEV NAME(LOC) 3E.I 2; GLUCOSE,POINT OF CARE 86 MG/DL (70-110)
[2020-02-06 16:01] VITALS: BP 137/76
[2020-02-06 16:38] LABS: GLUCOMETER DEV NAME(LOC) 3E.I 2; GLUCOSE,POINT OF CARE 87 MG/DL (70-110)
[2020-02-06] MEDS: ATORVASTATIN CALCIUM 20 MG TABLET PO SCH (20:15)
[2020-02-06 20:30] LABS: GLUCOMETER DEV NAME(LOC) 3E.I 2; GLUCOSE,POINT OF CARE 106 MG/DL (70-110)
[2020-02-06] MEDS: ZOLPIDEM TARTRATE 10 MG TABLET PO PRN (20:30)
[2020-02-07 05:46] LABS: GLUCOMETER DEV NAME(LOC) 3E.I 2; GLUCOSE,POINT OF CARE 85 MG/DL (70-110)
[2020-02-07] MEDS: INSULIN LISPRO 100 UNITS/ML SQ PRN ×2 (06:59→17:21)
[2020-02-07 07:00] VITALS: BP 148/85
[2020-02-07] MEDS: LORazepam 2 MG TABLET PO PRN (07:04)
[2020-02-07 08:00] VITALS: BP 151/85
[2020-02-07] MEDS: METOPROLOL TARTRATE 25 MG TABLET PO SCH ×2 (08:27→16:09)
[2020-02-07] MEDS: LISINOPRIL 10 MG TABLET PO SCH (08:27)
[2020-02-07] MEDS: ASPIRIN 81 MG EC TABLET PO SCH (08:27)
[2020-02-07] MEDS: QUEtiapine FUMARATE 25 MG TABLET PO SCH ×2 (08:27→20:01)
[2020-02-07] MEDS: MAGNESIUM HYDROXIDE SUSPENSION 30 ML UDCUP PO PRN (09:38)
[2020-02-07 11:25] VITALS: BP 139/79
[2020-02-07] MEDS: IBUPROFEN 600 MG TABLET PO PRN ×2 (11:25→18:51)
[2020-02-07 11:41] LABS: GLUCOMETER DEV NAME(LOC) 3E.I 2; GLUCOSE,POINT OF CARE 86 MG/DL (70-110)
[2020-02-07 16:50] LABS: GLUCOMETER DEV NAME(LOC) 3E.I 2; GLUCOSE,POINT OF CARE 172 MG/DL (70-110)
[2020-02-07 18:34] VITALS: BP 140/80
[2020-02-07 18:51] VITALS: BP 146/84
[2020-02-07] MEDS: ATORVASTATIN CALCIUM 20 MG TABLET PO SCH (20:01)
[2020-02-07 20:16] LABS: GLUCOMETER DEV NAME(LOC) 3E.I 2; GLUCOSE,POINT OF CARE 117 MG/DL (70-110)
[2020-02-07] MEDS: ZOLPIDEM TARTRATE 10 MG TABLET PO PRN (21:39)
[2020-02-08] MEDS: IBUPROFEN 600 MG TABLET PO PRN (05:49)
[2020-02-08 06:00] LABS: GLUCOMETER DEV NAME(LOC) 3E.I 2; GLUCOSE,POINT OF CARE 81 MG/DL (70-110)
[2020-02-08 06:10] VITALS: BP 148/98
[2020-02-08] MEDS: INSULIN LISPRO 100 UNITS/ML SQ PRN (06:46)
[2020-02-08] MEDS: LORazepam 2 MG TABLET PO PRN (07:03)
[2020-02-08 08:00] VITALS: BP 131/50
[2020-02-08] MEDS: LISINOPRIL 10 MG TABLET PO SCH (08:46)
[2020-02-08] MEDS: QUEtiapine FUMARATE 25 MG TABLET PO SCH ×2 (08:47→20:07)
[2020-02-08] MEDS: ASPIRIN 81 MG EC TABLET PO SCH (08:47)
[2020-02-08] MEDS: METOPROLOL TARTRATE 25 MG TABLET PO SCH ×2 (08:47→16:32)
[2020-02-08] MEDS: HALOPERIDOL 5 MG TABLET PO PRN (08:48)
[2020-02-08 12:12] LABS: GLUCOMETER DEV NAME(LOC) 3E.I 2; GLUCOSE,POINT OF CARE 106 MG/DL (70-110)
[2020-02-08 16:11] VITALS: BP 133/80
[2020-02-08 16:55] LABS: GLUCOMETER DEV NAME(LOC) 3E.I 2; GLUCOSE,POINT OF CARE 104 MG/DL (70-110)
[2020-02-08] MEDS: ATORVASTATIN CALCIUM 20 MG TABLET PO SCH (20:07)
[2020-02-08 20:28] LABS: GLUCOMETER DEV NAME(LOC) 3E.I 2; GLUCOSE,POINT OF CARE 91 MG/DL (70-110)
[2020-02-09 04:46] VITALS: BP 145/70
[2020-02-09 05:39] LABS: GLUCOMETER DEV NAME(LOC) 3E.I 2; GLUCOSE,POINT OF CARE 93 MG/DL (70-110)
[2020-02-09] MEDS: IBUPROFEN 600 MG TABLET PO PRN ×2 (05:49→12:28)
[2020-02-09 08:27] VITALS: BP 157/83
[2020-02-09] MEDS: QUEtiapine FUMARATE 25 MG TABLET PO SCH ×2 (08:32→20:13)
[2020-02-09] MEDS: LISINOPRIL 10 MG TABLET PO SCH (08:33)
[2020-02-09] MEDS: ASPIRIN 81 MG EC TABLET PO SCH (08:33)
[2020-02-09] MEDS: METOPROLOL TARTRATE 25 MG TABLET PO SCH ×2 (08:33→16:16)
[2020-02-09 09:43] VITALS: BP 137/84
[2020-02-09] MEDS: ACETAMINOPHEN 325 MG TABLET PO PRN (09:43)
[2020-02-09] MEDS: LORazepam 2 MG TABLET PO PRN (09:46)
[2020-02-09 11:45] LABS: GLUCOMETER DEV NAME(LOC) 3E.I 2; GLUCOSE,POINT OF CARE 86 MG/DL (70-110)
[2020-02-09 12:28] VITALS: BP 125/77
[2020-02-09 16:01] VITALS: BP 136/76
[2020-02-09 17:11] LABS: GLUCOMETER DEV NAME(LOC) 3E.I 2; GLUCOSE,POINT OF CARE 70 MG/DL (70-110)
[2020-02-09] MEDS: ATORVASTATIN CALCIUM 20 MG TABLET PO SCH (20:12)
[2020-02-09 20:36] LABS: GLUCOMETER DEV NAME(LOC) 3E.I 2; GLUCOSE,POINT OF CARE 86 MG/DL (70-110)
[2020-02-09] MEDS: ZOLPIDEM TARTRATE 10 MG TABLET PO PRN (21:57)
[2020-02-10 05:40] LABS: GLUCOMETER DEV NAME(LOC) 3E.I 2; GLUCOSE,POINT OF CARE 85 MG/DL (70-110)
[2020-02-10 08:00] VITALS: BP 122/59
[2020-02-10] MEDS: LISINOPRIL 10 MG TABLET PO SCH (08:52)
[2020-02-10] MEDS: QUEtiapine FUMARATE 25 MG TABLET PO SCH ×2 (08:52→20:17)
[2020-02-10] MEDS: ASPIRIN 81 MG EC TABLET PO SCH (08:52)
[2020-02-10] MEDS: METOPROLOL TARTRATE 25 MG TABLET PO SCH ×2 (08:54→16:36)
[2020-02-10] MEDS: IBUPROFEN 600 MG TABLET PO PRN ×2 (10:27→19:23)
[2020-02-10 12:00] VITALS: BP 115/80
[2020-02-10 12:12] LABS: GLUCOMETER DEV NAME(LOC) 3E.I 2; GLUCOSE,POINT OF CARE 89 MG/DL (70-110)
[2020-02-10 16:14] VITALS: BP 121/75
[2020-02-10 16:46] LABS: GLUCOMETER DEV NAME(LOC) 3E.I 2; GLUCOSE,POINT OF CARE 89 MG/DL (70-110)
[2020-02-10 19:21] VITALS: BP 127/87
[2020-02-10] MEDS: ATORVASTATIN CALCIUM 20 MG TABLET PO SCH (20:17)
[2020-02-10 21:02] LABS: GLUCOMETER DEV NAME(LOC) 3E.I 2; GLUCOSE,POINT OF CARE 94 MG/DL (70-110)
[2020-02-11] MEDS: ZOLPIDEM TARTRATE 10 MG TABLET PO PRN ×2 (01:46→23:07)
[2020-02-11 02:43] VITALS: BP 150/88
[2020-02-11 05:44] LABS: GLUCOMETER DEV NAME(LOC) 3E.I 2; GLUCOSE,POINT OF CARE 85 MG/DL (70-110)
[2020-02-11] MEDS: LISINOPRIL 10 MG TABLET PO SCH (08:44)
[2020-02-11] MEDS: METOPROLOL TARTRATE 25 MG TABLET PO SCH ×2 (08:45→16:02)
[2020-02-11] MEDS: IBUPROFEN 600 MG TABLET PO PRN ×2 (08:45→19:03)
[2020-02-11] MEDS: ASPIRIN 81 MG EC TABLET PO SCH (08:45)
[2020-02-11] MEDS: QUEtiapine FUMARATE 25 MG TABLET PO SCH ×2 (08:45→20:16)
[2020-02-11 10:24] VITALS: BP 153/92
[2020-02-11 11:42] LABS: GLUCOMETER DEV NAME(LOC) 3E.I 2; GLUCOSE,POINT OF CARE 78 MG/DL (70-110)
[2020-02-11] MEDS: ACETAMINOPHEN 325 MG TABLET PO PRN (13:25)
[2020-02-11 16:06] VITALS: BP 151/84
[2020-02-11 16:51] LABS: GLUCOMETER DEV NAME(LOC) 3E.I 2; GLUCOSE,POINT OF CARE 108 MG/DL (70-110)
[2020-02-11 19:03] VITALS: BP 138/75
[2020-02-11] MEDS: ATORVASTATIN CALCIUM 20 MG TABLET PO SCH (20:16)
[2020-02-11 20:30] LABS: GLUCOMETER DEV NAME(LOC) 3E.I 2; GLUCOSE,POINT OF CARE 100 MG/DL (70-110)
[2020-02-12] MEDS: ASPIRIN 81 MG EC TABLET PO SCH (08:15)
[2020-02-12] MEDS: METOPROLOL TARTRATE 25 MG TABLET PO SCH ×2 (08:15→16:20)
[2020-02-12] MEDS: QUEtiapine FUMARATE 25 MG TABLET PO SCH ×2 (08:15→20:02)
[2020-02-12] MEDS: LISINOPRIL 10 MG TABLET PO SCH (08:15)
[2020-02-12 09:09] VITALS: BP 151/91
[2020-02-12 12:15] LABS: GLUCOMETER DEV NAME(LOC) 3E.I 2; GLUCOSE,POINT OF CARE 85 MG/DL (70-110)
[2020-02-12 12:15] LABS: GLUCOMETER DEV NAME(LOC) 3E.I 2; GLUCOSE,POINT OF CARE 89 MG/DL (70-110)
[2020-02-12] MEDS: IBUPROFEN 600 MG TABLET PO PRN (13:31)
[2020-02-12] MEDS: HYDROCORTISONE 1% 30 GM CREAM TP PRN (13:33)
[2020-02-12 16:13] VITALS: BP 129/72
[2020-02-12 16:48] LABS: GLUCOMETER DEV NAME(LOC) 3E.I 2; GLUCOSE,POINT OF CARE 110 MG/DL (70-110)
[2020-02-12] MEDS: ACETAMINOPHEN 325 MG TABLET PO PRN (16:57)
[2020-02-12] MEDS: ATORVASTATIN CALCIUM 20 MG TABLET PO SCH (20:01)
[2020-02-12 20:16] LABS: GLUCOMETER DEV NAME(LOC) 3E.I 2; GLUCOSE,POINT OF CARE 88 MG/DL (70-110)
[2020-02-12] MEDS: ZOLPIDEM TARTRATE 10 MG TABLET PO PRN (23:49)
[2020-02-13 00:08] VITALS: BP 152/93
[2020-02-13 05:40] LABS: GLUCOMETER DEV NAME(LOC) 3E.I 2; GLUCOSE,POINT OF CARE 84 MG/DL (70-110)
[2020-02-13] MEDS: INSULIN LISPRO 100 UNITS/ML SQ PRN ×2 (06:44→12:59)
[2020-02-13] MEDS: QUEtiapine FUMARATE 25 MG TABLET PO SCH ×2 (08:47→20:19)
[2020-02-13] MEDS: ASPIRIN 81 MG EC TABLET PO SCH (08:47)
[2020-02-13] MEDS: LISINOPRIL 10 MG TABLET PO SCH (08:47)
[2020-02-13] MEDS: METOPROLOL TARTRATE 25 MG TABLET PO SCH ×2 (08:47→16:18)
[2020-02-13 08:51] VITALS: BP 148/86
[2020-02-13] MEDS: HYDROCORTISONE 1% 30 GM CREAM TP PRN (09:10)
[2020-02-13 11:50] LABS: GLUCOMETER DEV NAME(LOC) 3E.I 2; GLUCOSE,POINT OF CARE 75 MG/DL (70-110)
[2020-02-13 16:22] VITALS: BP 131/74
[2020-02-13 16:24] LABS: GLUCOMETER DEV NAME(LOC) 3E.I 2; GLUCOSE,POINT OF CARE 101 MG/DL (70-110)
[2020-02-13] MEDS: ATORVASTATIN CALCIUM 20 MG TABLET PO SCH (20:18)
[2020-02-13 20:31] LABS: GLUCOMETER DEV NAME(LOC) 3E.I 2; GLUCOSE,POINT OF CARE 90 MG/DL (70-110)
[2020-02-13] MEDS: ZOLPIDEM TARTRATE 10 MG TABLET PO PRN (21:33)
[2020-02-14 05:38] LABS: GLUCOMETER DEV NAME(LOC) 3E.I 2; GLUCOSE,POINT OF CARE 80 MG/DL (70-110)
[2020-02-14 08:34] VITALS: BP 164/103
[2020-02-14] MEDS: METOPROLOL TARTRATE 25 MG TABLET PO SCH ×2 (08:36→16:57)
[2020-02-14] MEDS: ASPIRIN 81 MG EC TABLET PO SCH (08:36)
[2020-02-14] MEDS: QUEtiapine FUMARATE 25 MG TABLET PO SCH ×2 (08:37→20:31)
[2020-02-14] MEDS: LISINOPRIL 10 MG TABLET PO SCH (08:37)
[2020-02-14 09:28] VITALS: BP 134/75
[2020-02-14 11:09] LABS: GLUCOMETER DEV NAME(LOC) 3E.I 2; GLUCOSE,POINT OF CARE 84 MG/DL (70-110)
[2020-02-14] MEDS: IBUPROFEN 600 MG TABLET PO PRN (12:16)
[2020-02-14] MEDS: INSULIN LISPRO 100 UNITS/ML SQ PRN (12:46)
[2020-02-14 16:59] VITALS: BP 110/82
[2020-02-14 17:18] LABS: GLUCOMETER DEV NAME(LOC) 3EX.; GLUCOSE,POINT OF CARE 83 MG/DL (70-110)
[2020-02-14] MEDS: ATORVASTATIN CALCIUM 40 MG TABLET PO SCH (20:31)
[2020-02-14 20:49] LABS: GLUCOMETER DEV NAME(LOC) 3EX.; GLUCOSE,POINT OF CARE 86 MG/DL (70-110)
[2020-02-14] MEDS: ZOLPIDEM TARTRATE 10 MG TABLET PO PRN (22:22)
[2020-02-15 05:59] LABS: GLUCOMETER DEV NAME(LOC) 3EX.; GLUCOSE,POINT OF CARE 80 MG/DL (70-110)
[2020-02-15] MEDS: LISINOPRIL 10 MG TABLET PO SCH (08:22)
[2020-02-15] MEDS: ASPIRIN 81 MG EC TABLET PO SCH (08:22)
[2020-02-15] MEDS: METOPROLOL TARTRATE 25 MG TABLET PO SCH ×3 (08:23→17:00)
[2020-02-15] MEDS: QUEtiapine FUMARATE 25 MG TABLET PO SCH ×2 (08:24→20:11)
[2020-02-15 08:32] VITALS: BP 154/86
[2020-02-15 11:41] LABS: GLUCOMETER DEV NAME(LOC) 3EX.; GLUCOSE,POINT OF CARE 83 MG/DL (70-110)
[2020-02-15 16:20] VITALS: BP 101/70
[2020-02-15 17:32] LABS: GLUCOMETER DEV NAME(LOC) 3EX.; GLUCOSE,POINT OF CARE 96 MG/DL (70-110)
[2020-02-15] MEDS: ATORVASTATIN CALCIUM 40 MG TABLET PO SCH (20:11)
[2020-02-15] MEDS: ZOLPIDEM TARTRATE 10 MG TABLET PO PRN (20:44)
[2020-02-15 20:45] LABS: GLUCOMETER DEV NAME(LOC) 3EX.; GLUCOSE,POINT OF CARE 91 MG/DL (70-110)
[2020-02-16 04:34] VITALS: BP 112/68
[2020-02-16 05:33] LABS: GLUCOMETER DEV NAME(LOC) 3EX.; GLUCOSE,POINT OF CARE 100 MG/DL (70-110)
[2020-02-16] MEDS: QUEtiapine FUMARATE 25 MG TABLET PO SCH ×2 (08:34→20:06)
[2020-02-16] MEDS: METOPROLOL TARTRATE 25 MG TABLET PO SCH ×2 (08:34→16:28)
[2020-02-16] MEDS: LISINOPRIL 10 MG TABLET PO SCH (08:34)
[2020-02-16] MEDS: ASPIRIN 81 MG EC TABLET PO SCH (08:34)
[2020-02-16 09:00] VITALS: BP 153/86
[2020-02-16] MEDS: IBUPROFEN 600 MG TABLET PO PRN (10:43)
[2020-02-16 14:10] LABS: GLUCOMETER DEV NAME(LOC) 3EX.; GLUCOSE,POINT OF CARE 107 MG/DL (70-110)
[2020-02-16 16:08] VITALS: BP 120/71
[2020-02-16 17:15] LABS: GLUCOMETER DEV NAME(LOC) 3EX.; GLUCOSE,POINT OF CARE 108 MG/DL (70-110)
[2020-02-16] MEDS: ATORVASTATIN CALCIUM 40 MG TABLET PO SCH (20:06)
[2020-02-16 20:44] LABS: GLUCOMETER DEV NAME(LOC) 3EX.; GLUCOSE,POINT OF CARE 119 MG/DL (70-110)
[2020-02-16] MEDS: ZOLPIDEM TARTRATE 10 MG TABLET PO PRN (21:26)
[2020-02-17 06:12] LABS: GLUCOMETER DEV NAME(LOC) 3EX.; GLUCOSE,POINT OF CARE 87 MG/DL (70-110)
[2020-02-17 07:05] VITALS: BP 152/89
[2020-02-17] MEDS: IBUPROFEN 600 MG TABLET PO PRN ×2 (07:07→14:19)
[2020-02-17] MEDS: ASPIRIN 81 MG EC TABLET PO SCH (08:39)
[2020-02-17] MEDS: METOPROLOL TARTRATE 25 MG TABLET PO SCH ×2 (08:40→16:37)
[2020-02-17] MEDS: QUEtiapine FUMARATE 25 MG TABLET PO SCH ×2 (08:40→20:04)
[2020-02-17] MEDS: LISINOPRIL 10 MG TABLET PO SCH (08:41)
[2020-02-17 17:04] LABS: GLUCOMETER DEV NAME(LOC) 3EX.; GLUCOSE,POINT OF CARE 88 MG/DL (70-110)
[2020-02-17 17:47] VITALS: BP 153/64
[2020-02-17] MEDS: ATORVASTATIN CALCIUM 40 MG TABLET PO SCH (20:03)
[2020-02-17 20:20] LABS: GLUCOMETER DEV NAME(LOC) 3EX.; GLUCOSE,POINT OF CARE 110 MG/DL (70-110)
[2020-02-17] MEDS: ZOLPIDEM TARTRATE 10 MG TABLET PO PRN (21:28)
[2020-02-18 05:49] LABS: GLUCOMETER DEV NAME(LOC) 3EX.; GLUCOSE,POINT OF CARE 90 MG/DL (70-110)
[2020-02-18] MEDS: QUEtiapine FUMARATE 25 MG TABLET PO SCH ×2 (08:17→20:47)
[2020-02-18] MEDS: LISINOPRIL 10 MG TABLET PO SCH (08:18)
[2020-02-18] MEDS: ASPIRIN 81 MG EC TABLET PO SCH (08:18)
[2020-02-18] MEDS: METOPROLOL TARTRATE 25 MG TABLET PO SCH ×2 (08:18→16:23)
[2020-02-18 08:30] VITALS: BP 153/90
[2020-02-18 11:36] LABS: GLUCOMETER DEV NAME(LOC) 3EX.; GLUCOSE,POINT OF CARE 114 MG/DL (70-110)
[2020-02-18] MEDS: INSULIN LISPRO 100 UNITS/ML SQ PRN (11:39)
[2020-02-18] MEDS: IBUPROFEN 600 MG TABLET PO PRN (12:45)
[2020-02-18 16:10] VITALS: BP 118/78
[2020-02-18 16:26] LABS: GLUCOMETER DEV NAME(LOC) 3EX.; GLUCOSE,POINT OF CARE 99 MG/DL (70-110)
[2020-02-18 20:30] LABS: GLUCOMETER DEV NAME(LOC) 3EX.; GLUCOSE,POINT OF CARE 102 MG/DL (70-110)
[2020-02-18] MEDS: ATORVASTATIN CALCIUM 40 MG TABLET PO SCH (20:47)
[2020-02-18] MEDS: ZOLPIDEM TARTRATE 10 MG TABLET PO PRN (21:18)
[2020-02-19 05:54] LABS: GLUCOMETER DEV NAME(LOC) 3EX.; GLUCOSE,POINT OF CARE 81 MG/DL (70-110)
[2020-02-19 08:24] VITALS: BP 140/88
[2020-02-19] MEDS: ASPIRIN 81 MG EC TABLET PO SCH (08:28)
[2020-02-19] MEDS: LISINOPRIL 10 MG TABLET PO SCH (08:28)
[2020-02-19] MEDS: METOPROLOL TARTRATE 25 MG TABLET PO SCH ×2 (08:28→16:03)
[2020-02-19] MEDS: QUEtiapine FUMARATE 25 MG TABLET PO SCH ×2 (08:29→20:14)
[2020-02-19 11:46] LABS: GLUCOMETER DEV NAME(LOC) 3EX.; GLUCOSE,POINT OF CARE 130 MG/DL (70-110)
[2020-02-19 16:11] VITALS: BP 129/68
[2020-02-19 16:51] LABS: GLUCOMETER DEV NAME(LOC) 3EX.; GLUCOSE,POINT OF CARE 80 MG/DL (70-110)
[2020-02-19 18:56] VITALS: BP 148/78
[2020-02-19] MEDS: IBUPROFEN 600 MG TABLET PO PRN (18:56)
[2020-02-19] MEDS: ATORVASTATIN CALCIUM 40 MG TABLET PO SCH (20:14)
[2020-02-19 20:29] LABS: GLUCOMETER DEV NAME(LOC) 3EX.; GLUCOSE,POINT OF CARE 120 MG/DL (70-110)
[2020-02-19] MEDS: ZOLPIDEM TARTRATE 10 MG TABLET PO PRN (21:30)
[2020-02-20 07:02] LABS: GLUCOMETER DEV NAME(LOC) 3EX.; GLUCOSE,POINT OF CARE 84 MG/DL (70-110)
[2020-02-20] MEDS: QUEtiapine FUMARATE 25 MG TABLET PO SCH ×2 (08:35→20:20)
[2020-02-20] MEDS: ASPIRIN 81 MG EC TABLET PO SCH (08:36)
[2020-02-20] MEDS: LISINOPRIL 10 MG TABLET PO SCH (08:37)
[2020-02-20] MEDS: METOPROLOL TARTRATE 25 MG TABLET PO SCH ×2 (08:38→16:04)
[2020-02-20 09:45] VITALS: BP 153/81
[2020-02-20] MEDS: IBUPROFEN 600 MG TABLET PO PRN (11:05)
[2020-02-20] MEDS: HYDROCORTISONE 1% 30 GM CREAM TP PRN (14:29)
[2020-02-20 16:00] VITALS: BP 140/70
[2020-02-20 16:12] LABS: GLUCOMETER DEV NAME(LOC) 3EX.; GLUCOSE,POINT OF CARE 111 MG/DL (70-110)
[2020-02-20 16:52] LABS: GLUCOMETER DEV NAME(LOC) 3EX.; GLUCOSE,POINT OF CARE 106 MG/DL (70-110)
[2020-02-20] MEDS: ATORVASTATIN CALCIUM 40 MG TABLET PO SCH (20:20)
[2020-02-20 20:55] LABS: GLUCOMETER DEV NAME(LOC) 3EX.; GLUCOSE,POINT OF CARE 97 MG/DL (70-110)
[2020-02-20] MEDS: ZOLPIDEM TARTRATE 10 MG TABLET PO PRN (21:29)
[2020-02-21 06:31] LABS: GLUCOMETER DEV NAME(LOC) 3EX.; GLUCOSE,POINT OF CARE 83 MG/DL (70-110)
[2020-02-21] MEDS: INSULIN LISPRO 100 UNITS/ML SQ PRN ×2 (06:57→12:08)
[2020-02-21] MEDS: LISINOPRIL 10 MG TABLET PO SCH (08:10)
[2020-02-21] MEDS: ASPIRIN 81 MG EC TABLET PO SCH (08:11)
[2020-02-21] MEDS: QUEtiapine FUMARATE 25 MG TABLET PO SCH ×2 (08:11→21:02)
[2020-02-21] MEDS: METOPROLOL TARTRATE 25 MG TABLET PO SCH ×2 (08:11→16:48)
[2020-02-21 09:52] VITALS: BP 165/86
[2020-02-21 11:30] LABS: GLUCOMETER DEV NAME(LOC) 3EX.; GLUCOSE,POINT OF CARE 92 MG/DL (70-110)
[2020-02-21] MEDS: IBUPROFEN 600 MG TABLET PO PRN (12:01)
[2020-02-21 16:06] VITALS: BP 140/75
[2020-02-21 17:24] LABS: GLUCOMETER DEV NAME(LOC) 3EX.; GLUCOSE,POINT OF CARE 108 MG/DL (70-110)
[2020-02-21] MEDS: ATORVASTATIN CALCIUM 40 MG TABLET PO SCH (21:02)
[2020-02-21 21:41] LABS: GLUCOMETER DEV NAME(LOC) 3EX.; GLUCOSE,POINT OF CARE 79 MG/DL (70-110)
[2020-02-21] MEDS: ZOLPIDEM TARTRATE 10 MG TABLET PO PRN (21:58)
[2020-02-22 06:43] LABS: GLUCOMETER DEV NAME(LOC) 3EX.; GLUCOSE,POINT OF CARE 85 MG/DL (70-110)
[2020-02-22 08:38] VITALS: BP 159/84
[2020-02-22] MEDS: QUEtiapine FUMARATE 25 MG TABLET PO SCH ×2 (08:44→20:41)
[2020-02-22] MEDS: LISINOPRIL 10 MG TABLET PO SCH (08:44)
[2020-02-22] MEDS: METOPROLOL TARTRATE 25 MG TABLET PO SCH ×2 (08:44→16:52)
[2020-02-22] MEDS: ASPIRIN 81 MG EC TABLET PO SCH (08:44)
[2020-02-22 11:15] LABS: GLUCOMETER DEV NAME(LOC) 3EX.; GLUCOSE,POINT OF CARE 128 MG/DL (70-110)
[2020-02-22] MEDS: INSULIN LISPRO 100 UNITS/ML SQ PRN (12:47)
[2020-02-22 17:42] VITALS: BP 154/84
[2020-02-22 17:43] LABS: GLUCOMETER DEV NAME(LOC) 3EX.; GLUCOSE,POINT OF CARE 118 MG/DL (70-110)
[2020-02-22] MEDS: ATORVASTATIN CALCIUM 40 MG TABLET PO SCH (20:41)
[2020-02-22] MEDS: HYDROCORTISONE 1% 30 GM CREAM TP PRN (20:42)
[2020-02-22 21:11] LABS: GLUCOMETER DEV NAME(LOC) 3EX.; GLUCOSE,POINT OF CARE 114 MG/DL (70-110)
[2020-02-22] MEDS: ZOLPIDEM TARTRATE 10 MG TABLET PO PRN (21:25)
[2020-02-23 06:19] LABS: GLUCOMETER DEV NAME(LOC) 3EX.; GLUCOSE,POINT OF CARE 82 MG/DL (70-110)
[2020-02-23] MEDS: ASPIRIN 81 MG EC TABLET PO SCH (08:15)
[2020-02-23] MEDS: METOPROLOL TARTRATE 25 MG TABLET PO SCH ×2 (08:15→16:24)
[2020-02-23] MEDS: LISINOPRIL 10 MG TABLET PO SCH (08:15)
[2020-02-23] MEDS: QUEtiapine FUMARATE 25 MG TABLET PO SCH ×2 (08:16→20:34)
[2020-02-23 08:22] VITALS: BP 149/80
[2020-02-23] MEDS: INSULIN LISPRO 100 UNITS/ML SQ PRN (11:09)
[2020-02-23 11:20] LABS: GLUCOMETER DEV NAME(LOC) 3EX.; GLUCOSE,POINT OF CARE 104 MG/DL (70-110)
[2020-02-23 16:07] VITALS: BP 140/83
[2020-02-23 16:42] LABS: GLUCOMETER DEV NAME(LOC) 3EX.; GLUCOSE,POINT OF CARE 125 MG/DL (70-110)
[2020-02-23] MEDS: ATORVASTATIN CALCIUM 40 MG TABLET PO SCH (20:35)
[2020-02-23 20:44] LABS: GLUCOMETER DEV NAME(LOC) 3EX.; GLUCOSE,POINT OF CARE 91 MG/DL (70-110)
[2020-02-23] MEDS: ZOLPIDEM TARTRATE 10 MG TABLET PO PRN (21:24)
[2020-02-24 05:59] LABS: GLUCOMETER DEV NAME(LOC) 3EX.; GLUCOSE,POINT OF CARE 80 MG/DL (70-110)
[2020-02-24] MEDS: METOPROLOL TARTRATE 25 MG TABLET PO SCH ×2 (08:15→16:25)
[2020-02-24] MEDS: QUEtiapine FUMARATE 25 MG TABLET PO SCH ×2 (08:15→20:07)
[2020-02-24] MEDS: ASPIRIN 81 MG EC TABLET PO SCH (08:15)
[2020-02-24] MEDS: LISINOPRIL 10 MG TABLET PO SCH (08:16)
[2020-02-24 08:46] VITALS: BP 132/89
[2020-02-24 12:10] LABS: GLUCOMETER DEV NAME(LOC) 3EX.; GLUCOSE,POINT OF CARE 118 MG/DL (70-110)
[2020-02-24 16:46] VITALS: BP 149/79
[2020-02-24 16:47] LABS: GLUCOMETER DEV NAME(LOC) 3EX.; GLUCOSE,POINT OF CARE 166 MG/DL (70-110)
[2020-02-24] MEDS: INSULIN LISPRO 100 UNITS/ML SQ PRN (17:23)
[2020-02-24] MEDS: ATORVASTATIN CALCIUM 40 MG TABLET PO SCH (20:07)
[2020-02-24 20:42] LABS: GLUCOMETER DEV NAME(LOC) 3EX.; GLUCOSE,POINT OF CARE 91 MG/DL (70-110)
[2020-02-24] MEDS: ZOLPIDEM TARTRATE 10 MG TABLET PO PRN (21:00)
[2020-02-25 05:51] VITALS: BP 140/82
[2020-02-25 06:22] LABS: GLUCOMETER DEV NAME(LOC) 3EX.; GLUCOSE,POINT OF CARE 64 MG/DL (70-110)
[2020-02-25 07:10] LABS: GLUCOMETER DEV NAME(LOC) 3EX.; GLUCOSE,POINT OF CARE 89 MG/DL (70-110)
[2020-02-25 08:26] VITALS: BP 141/80
[2020-02-25] MEDS: QUEtiapine FUMARATE 25 MG TABLET PO SCH ×2 (09:02→20:28)
[2020-02-25] MEDS: LISINOPRIL 10 MG TABLET PO SCH (09:02)
[2020-02-25] MEDS: METOPROLOL TARTRATE 25 MG TABLET PO SCH ×2 (09:02→16:06)
[2020-02-25] MEDS: ASPIRIN 81 MG EC TABLET PO SCH (09:03)
[2020-02-25 11:33] LABS: GLUCOMETER DEV NAME(LOC) 3EX.; GLUCOSE,POINT OF CARE 134 MG/DL (70-110)
[2020-02-25 16:04] VITALS: BP 110/81
[2020-02-25 16:57] LABS: GLUCOMETER DEV NAME(LOC) 3EX.; GLUCOSE,POINT OF CARE 114 MG/DL (70-110)
[2020-02-25] MEDS: INSULIN LISPRO 100 UNITS/ML SQ PRN ×2 (17:33→21:03)
[2020-02-25] MEDS: ATORVASTATIN CALCIUM 40 MG TABLET PO SCH (20:28)
[2020-02-25 20:53] LABS: GLUCOMETER DEV NAME(LOC) 3EX.; GLUCOSE,POINT OF CARE 99 MG/DL (70-110)
[2020-02-25] MEDS: ZOLPIDEM TARTRATE 10 MG TABLET PO PRN (21:00)
[2020-02-26 06:10] LABS: GLUCOMETER DEV NAME(LOC) 3EX.; GLUCOSE,POINT OF CARE 82 MG/DL (70-110)
[2020-02-26 08:24] VITALS: BP 155/83
[2020-02-26] MEDS: ASPIRIN 81 MG EC TABLET PO SCH (08:39)
[2020-02-26] MEDS: METOPROLOL TARTRATE 25 MG TABLET PO SCH ×2 (08:39→16:24)
[2020-02-26] MEDS: LISINOPRIL 10 MG TABLET PO SCH (08:40)
[2020-02-26] MEDS: QUEtiapine FUMARATE 25 MG TABLET PO SCH ×2 (09:06→20:04)
[2020-02-26 11:47] LABS: GLUCOMETER DEV NAME(LOC) 3EX.; GLUCOSE,POINT OF CARE 120 MG/DL (70-110)
[2020-02-26 16:00] VITALS: BP 147/78
[2020-02-26 16:49] LABS: GLUCOMETER DEV NAME(LOC) 3EX.; GLUCOSE,POINT OF CARE 82 MG/DL (70-110)
[2020-02-26] MEDS: ATORVASTATIN CALCIUM 40 MG TABLET PO SCH (20:04)
[2020-02-26 20:23] LABS: GLUCOMETER DEV NAME(LOC) 3EX.; GLUCOSE,POINT OF CARE 101 MG/DL (70-110)
[2020-02-26] MEDS: ZOLPIDEM TARTRATE 10 MG TABLET PO PRN (20:56)
[2020-02-27 05:26] LABS: GLUCOMETER DEV NAME(LOC) 3EX.; GLUCOSE,POINT OF CARE 92 MG/DL (70-110)
[2020-02-27 08:18] VITALS: BP_SYST 137; BP_SYST 161; BP_DIAS 82; BP_DIAS 83
[2020-02-27] MEDS: METOPROLOL TARTRATE 25 MG TABLET PO SCH ×2 (09:25→16:20)
[2020-02-27] MEDS: QUEtiapine FUMARATE 25 MG TABLET PO SCH ×2 (09:25→20:52)
[2020-02-27] MEDS: LISINOPRIL 10 MG TABLET PO SCH (09:25)
[2020-02-27] MEDS: ASPIRIN 81 MG EC TABLET PO SCH (09:25)
[2020-02-27 16:09] VITALS: BP 110/79
[2020-02-27 16:17] LABS: GLUCOMETER DEV NAME(LOC) 3EX.; GLUCOSE,POINT OF CARE 103 MG/DL (70-110)
[2020-02-27 16:42] LABS: GLUCOMETER DEV NAME(LOC) 3EX.; GLUCOSE,POINT OF CARE 99 MG/DL (70-110)
[2020-02-27 20:37] LABS: GLUCOMETER DEV NAME(LOC) 3E.I 2; GLUCOSE,POINT OF CARE 114 MG/DL (70-110)
[2020-02-27] MEDS: ATORVASTATIN CALCIUM 40 MG TABLET PO SCH (20:52)
[2020-02-27] MEDS: ZOLPIDEM TARTRATE 10 MG TABLET PO PRN (22:00)
[2020-02-28 06:15] LABS: GLUCOMETER DEV NAME(LOC) 3E.I 2; GLUCOSE,POINT OF CARE 83 MG/DL (70-110)
[2020-02-28 08:00] VITALS: BP 146/91
[2020-02-28] MEDS: METOPROLOL TARTRATE 25 MG TABLET PO SCH ×2 (08:19→16:15)
[2020-02-28] MEDS: QUEtiapine FUMARATE 25 MG TABLET PO SCH ×2 (08:19→20:17)
[2020-02-28] MEDS: LISINOPRIL 10 MG TABLET PO SCH (08:20)
[2020-02-28] MEDS: ASPIRIN 81 MG EC TABLET PO SCH (08:20)
[2020-02-28] MEDS: INSULIN LISPRO 100 UNITS/ML SQ PRN (11:19)
[2020-02-28 11:25] LABS: GLUCOMETER DEV NAME(LOC) 3E.I 2; GLUCOSE,POINT OF CARE 123 MG/DL (70-110)
[2020-02-28 16:24] LABS: GLUCOMETER DEV NAME(LOC) 3E.I 2; GLUCOSE,POINT OF CARE 97 MG/DL (70-110)
[2020-02-28 16:42] VITALS: BP 146/77
[2020-02-28] MEDS: ATORVASTATIN CALCIUM 40 MG TABLET PO SCH (20:17)
[2020-02-28] MEDS: ZOLPIDEM TARTRATE 10 MG TABLET PO PRN (21:04)
[2020-02-28 21:11] LABS: GLUCOMETER DEV NAME(LOC) 3E.I 2; GLUCOSE,POINT OF CARE 106 MG/DL (70-110)
[2020-02-29 06:11] LABS: GLUCOMETER DEV NAME(LOC) 3E.I 2; GLUCOSE,POINT OF CARE 83 MG/DL (70-110)
[2020-02-29] MEDS: INSULIN LISPRO 100 UNITS/ML SQ PRN (06:44)
[2020-02-29] MEDS: METOPROLOL TARTRATE 25 MG TABLET PO SCH ×2 (08:29→16:44)
[2020-02-29] MEDS: ASPIRIN 81 MG EC TABLET PO SCH (08:30)
[2020-02-29] MEDS: QUEtiapine FUMARATE 25 MG TABLET PO SCH ×2 (08:30→20:32)
[2020-02-29] MEDS: LISINOPRIL 10 MG TABLET PO SCH (08:30)
[2020-02-29 08:59] VITALS: BP 163/85
[2020-02-29 11:16] LABS: GLUCOMETER DEV NAME(LOC) 3E.I 2; GLUCOSE,POINT OF CARE 79 MG/DL (70-110)
[2020-02-29 16:27] VITALS: BP 107/60
[2020-02-29 16:54] LABS: GLUCOMETER DEV NAME(LOC) 3E.I 2; GLUCOSE,POINT OF CARE 117 MG/DL (70-110)
[2020-02-29] MEDS: ATORVASTATIN CALCIUM 40 MG TABLET PO SCH (20:31)
[2020-02-29 20:41] LABS: GLUCOMETER DEV NAME(LOC) 3E.I 2; GLUCOSE,POINT OF CARE 114 MG/DL (70-110)
[2020-02-29] MEDS: ZOLPIDEM TARTRATE 10 MG TABLET PO PRN (21:23)
[2020-03-01 05:57] LABS: GLUCOMETER DEV NAME(LOC) 3E.I 2; GLUCOSE,POINT OF CARE 77 MG/DL (70-110)
[2020-03-01 08:00] VITALS: BP 129/82
[2020-03-01] MEDS: METOPROLOL TARTRATE 25 MG TABLET PO SCH ×2 (09:03→16:25)
[2020-03-01] MEDS: QUEtiapine FUMARATE 25 MG TABLET PO SCH ×2 (09:03→20:19)
[2020-03-01] MEDS: LISINOPRIL 10 MG TABLET PO SCH (09:03)
[2020-03-01] MEDS: ASPIRIN 81 MG EC TABLET PO SCH (09:03)
[2020-03-01] MEDS: INSULIN LISPRO 100 UNITS/ML SQ PRN (11:03)
[2020-03-01 11:14] LABS: GLUCOMETER DEV NAME(LOC) 3E.I 2; GLUCOSE,POINT OF CARE 95 MG/DL (70-110)
[2020-03-01 16:17] VITALS: BP 137/83
[2020-03-01] MEDS: PETROLATUM,WHITE 28 GM JELLY TP PRN (16:25)
[2020-03-01 16:34] LABS: GLUCOMETER DEV NAME(LOC) 3E.I 2; GLUCOSE,POINT OF CARE 124 MG/DL (70-110)
[2020-03-01] MEDS: ATORVASTATIN CALCIUM 40 MG TABLET PO SCH (20:18)
[2020-03-01 20:29] LABS: GLUCOMETER DEV NAME(LOC) 3E.I 2; GLUCOSE,POINT OF CARE 92 MG/DL (70-110)
[2020-03-01] MEDS: ZOLPIDEM TARTRATE 10 MG TABLET PO PRN (21:28)
[2020-03-02 03:50] VITALS: BP 123/70
[2020-03-02 05:23] LABS: GLUCOMETER DEV NAME(LOC) 3E.I 2; GLUCOSE,POINT OF CARE 78 MG/DL (70-110)
[2020-03-02 08:45] VITALS: BP 148/80
[2020-03-02] MEDS: ASPIRIN 81 MG EC TABLET PO SCH (09:16)
[2020-03-02] MEDS: LISINOPRIL 10 MG TABLET PO SCH (09:16)
[2020-03-02] MEDS: QUEtiapine FUMARATE 25 MG TABLET PO SCH ×2 (09:16→20:02)
[2020-03-02] MEDS: METOPROLOL TARTRATE 25 MG TABLET PO SCH ×2 (09:17→16:19)
[2020-03-02 11:11] LABS: GLUCOMETER DEV NAME(LOC) 3E.I 2; GLUCOSE,POINT OF CARE 100 MG/DL (70-110)
[2020-03-02] MEDS: INSULIN LISPRO 100 UNITS/ML SQ PRN (11:37)
[2020-03-02 16:40] LABS: GLUCOMETER DEV NAME(LOC) 3E.I 2; GLUCOSE,POINT OF CARE 102 MG/DL (70-110)
[2020-03-02 17:08] VITALS: BP 124/83
[2020-03-02] MEDS: ATORVASTATIN CALCIUM 40 MG TABLET PO SCH (20:02)
[2020-03-02 20:21] LABS: GLUCOMETER DEV NAME(LOC) 3E.I 2; GLUCOSE,POINT OF CARE 83 MG/DL (70-110)
[2020-03-02] MEDS: ZOLPIDEM TARTRATE 10 MG TABLET PO PRN (21:07)
[2020-03-03 06:19] LABS: GLUCOMETER DEV NAME(LOC) 3E.I 2; GLUCOSE,POINT OF CARE 80 MG/DL (70-110)
[2020-03-03] MEDS: METOPROLOL TARTRATE 25 MG TABLET PO SCH ×2 (08:27→16:14)
[2020-03-03] MEDS: LISINOPRIL 10 MG TABLET PO SCH (08:27)
[2020-03-03] MEDS: ASPIRIN 81 MG EC TABLET PO SCH (08:28)
[2020-03-03] MEDS: QUEtiapine FUMARATE 25 MG TABLET PO SCH ×2 (08:28→20:14)
[2020-03-03 08:39] VITALS: BP 159/95
[2020-03-03 11:17] LABS: GLUCOMETER DEV NAME(LOC) 3E.I 2; GLUCOSE,POINT OF CARE 57 MG/DL (70-110)
[2020-03-03 11:58] LABS: GLUCOMETER DEV NAME(LOC) 3E.I 2; GLUCOSE,POINT OF CARE 139 MG/DL (70-110)
[2020-03-03 16:12] VITALS: BP 121/70
[2020-03-03 16:55] LABS: GLUCOMETER DEV NAME(LOC) 3E.I 2; GLUCOSE,POINT OF CARE 116 MG/DL (70-110)
[2020-03-03] MEDS: ATORVASTATIN CALCIUM 40 MG TABLET PO SCH (20:14)
[2020-03-03] MEDS: ZOLPIDEM TARTRATE 10 MG TABLET PO PRN (21:05)
[2020-03-03 21:11] LABS: GLUCOMETER DEV NAME(LOC) 3E.I 2; GLUCOSE,POINT OF CARE 90 MG/DL (70-110)
[2020-03-04 05:53] LABS: GLUCOMETER DEV NAME(LOC) 3E.I 2; GLUCOSE,POINT OF CARE 95 MG/DL (70-110)
[2020-03-04] MEDS: INSULIN LISPRO 100 UNITS/ML SQ PRN (06:38)
[2020-03-04] MEDS: QUEtiapine FUMARATE 25 MG TABLET PO SCH ×2 (08:13→20:15)
[2020-03-04] MEDS: LISINOPRIL 10 MG TABLET PO SCH (08:13)
[2020-03-04] MEDS: ASPIRIN 81 MG EC TABLET PO SCH (08:13)
[2020-03-04] MEDS: METOPROLOL TARTRATE 25 MG TABLET PO SCH ×2 (08:13→16:18)
[2020-03-04 08:28] VITALS: BP 126/90
[2020-03-04 11:42] LABS: GLUCOMETER DEV NAME(LOC) 3E.I 2; GLUCOSE,POINT OF CARE 106 MG/DL (70-110)
[2020-03-04 16:00] VITALS: BP 134/82
[2020-03-04 17:04] LABS: GLUCOMETER DEV NAME(LOC) 3E.I 2; GLUCOSE,POINT OF CARE 96 MG/DL (70-110)
[2020-03-04] MEDS: ATORVASTATIN CALCIUM 40 MG TABLET PO SCH (20:15)
[2020-03-04] MEDS: PETROLATUM,WHITE 28 GM JELLY TP PRN (20:47)
[2020-03-04 21:11] LABS: GLUCOMETER DEV NAME(LOC) 3E.I 2; GLUCOSE,POINT OF CARE 113 MG/DL (70-110)
[2020-03-04] MEDS: ZOLPIDEM TARTRATE 10 MG TABLET PO PRN (21:52)
[2020-03-05 06:32] LABS: GLUCOMETER DEV NAME(LOC) 3E.I 2; GLUCOSE,POINT OF CARE 88 MG/DL (70-110)
[2020-03-05 08:00] VITALS: BP 123/69
[2020-03-05] MEDS: QUEtiapine FUMARATE 25 MG TABLET PO SCH ×2 (10:00→20:13)
[2020-03-05] MEDS: ASPIRIN 81 MG EC TABLET PO SCH (10:00)
[2020-03-05] MEDS: METOPROLOL TARTRATE 25 MG TABLET PO SCH ×2 (10:00→16:40)
[2020-03-05] MEDS: LISINOPRIL 10 MG TABLET PO SCH (10:01)
[2020-03-05 12:00] LABS: GLUCOMETER DEV NAME(LOC) 3E.I 2; GLUCOSE,POINT OF CARE 90 MG/DL (70-110)
[2020-03-05 16:46] LABS: GLUCOMETER DEV NAME(LOC) 3E.I 2; GLUCOSE,POINT OF CARE 105 MG/DL (70-110)
[2020-03-05] MEDS: ATORVASTATIN CALCIUM 40 MG TABLET PO SCH (20:12)
[2020-03-05 20:24] LABS: GLUCOMETER DEV NAME(LOC) 3E.I 2; GLUCOSE,POINT OF CARE 108 MG/DL (70-110)
[2020-03-05] MEDS: ZOLPIDEM TARTRATE 10 MG TABLET PO PRN (20:28)
[2020-03-06 07:00] LABS: GLUCOMETER DEV NAME(LOC) 3E.I 2; GLUCOSE,POINT OF CARE 89 MG/DL (70-110)
[2020-03-06 07:11] LABS: BASOPHILS % (AUTO) 0.8 % (0.0-2.0); EOSINOPHILS % (AUTO) 7.1 % (1.0-6.0); HEMATOCRIT 38.7 % (41-53); HEMOGLOBIN 13.4 g/dL (13.5-17.5); LYMPHOCYTES # (AUTO) 1.4 K/uL (1.0-4.8); LYMPHOCYTES % (AUTO) 29.8 % (22.0-44.0); MEAN CORPUSCULAR HEMOGLOBIN 32.2 pg (26.0-34.0); MEAN CORPUSCULAR HGB CONC 34.6 G/dL (31.0-37.0); MEAN CORPUSCULAR VOLUME 93 fL (80-100); MONOCYTES # (AUTO) 0.6 K/uL (0.1-1.0); MONOCYTES % (AUTO) 13.5 % (2.0-9.0); NEUTROPHILS # (AUTO) 2.2 K/uL (1.8-7.7); NEUTROPHILS % (AUTO) 48.8 % (40.0-70.0); PLATELET COUNT (AUTO) 232 K/uL (150-450); RED BLOOD CELL COUNT(AUTO) 4.16 MIL/uL (4.50-5.90); RED CELL DISTRIBUTION WIDTH 13.2 % (11.5-14.5)
[2020-03-06 07:47] LABS: ALANINE AMINOTRANSFERASE 36 U/L (12-78); ALBUMIN 3.7 g/dL (3.4-5.0); ALKALINE PHOSPHATASE 78 U/L (46-116); ANION GAP 8 mmol/L (8-16); ASPARTATE AMINOTRANSFERASE 19 U/L (15-37); CALCIUM, TOTAL 9.5 mg/dL (8.8-10.5); CARBON DIOXIDE 27 mmol/L (22-29); CHLORIDE 103 mmol/L (98-107); CHOL/HDL RATIO 2.1 (4.2-7.3); CHOLESTEROL 105 mg/dL (131-200); CREATININE 0.92 mg/dL (0.60-1.30); GLOMERULAR FILTR. RATE CALC > 60 mL/min (>60); GLUCOSE,RANDOM 90 mg/dL (70-110); HDL CHOLESTEROL 49 mg/dL (40-60); LDL CHOL (CALC.) 35 mg/dL (0-130); PHOSPHORUS 3.9 mg/dL (2.5-4.9); POTASSIUM 4.1 mmol/L (3.5-5.1); SODIUM SERUM 138 mmol/L (136-145); THYROID STIMULATING HORMONE 1.27 uIU/mL (0.36-3.74); TOTAL PROTEIN, SERUM 6.6 g/dL (6.4-8.2); TRIGLYCERIDES 105 mg/dL (15-150); UREA NITROGEN, BLOOD 16 mg/dL (7-18)
[2020-03-06 08:00] VITALS: BP 175/110
[2020-03-06 08:39] LABS: HEMOGLOBIN A1C 4.7 % (3.8-5.6)
[2020-03-06] MEDS: ASPIRIN 81 MG EC TABLET PO SCH (08:48)
[2020-03-06] MEDS: METOPROLOL TARTRATE 25 MG TABLET PO SCH ×2 (08:48→16:25)
[2020-03-06] MEDS: LISINOPRIL 10 MG TABLET PO SCH (08:48)
[2020-03-06] MEDS: QUEtiapine FUMARATE 25 MG TABLET PO SCH ×2 (08:48→20:15)
[2020-03-06 11:54] LABS: GLUCOMETER DEV NAME(LOC) 3E.I 2; GLUCOSE,POINT OF CARE 68 MG/DL (70-110)
[2020-03-06 14:07] VITALS: BP 130/73
[2020-03-06 16:05] VITALS: BP 138/81
[2020-03-06 17:02] LABS: GLUCOMETER DEV NAME(LOC) 3E.I 2; GLUCOSE,POINT OF CARE 108 MG/DL (70-110)
[2020-03-06] MEDS: ATORVASTATIN CALCIUM 40 MG TABLET PO SCH (20:15)
[2020-03-06 20:20] LABS: GLUCOMETER DEV NAME(LOC) 3E.I 2; GLUCOSE,POINT OF CARE 91 MG/DL (70-110)
[2020-03-06] MEDS: ZOLPIDEM TARTRATE 10 MG TABLET PO PRN (21:41)
[2020-03-07 06:26] LABS: GLUCOMETER DEV NAME(LOC) 3E.I 2; GLUCOSE,POINT OF CARE 75 MG/DL (70-110)
[2020-03-07 09:28] VITALS: BP 161/75
[2020-03-07] MEDS ORDERED: QUET25TA PO (09:29)
[2020-03-07] MEDS ORDERED: METO25 PO (09:29)
[2020-03-07] MEDS ORDERED: ASPI-1111 PO (09:29)
[2020-03-07] MEDS ORDERED: ATOR40TA28 PO (09:29)
[2020-03-07] MEDS ORDERED: LISI-661 PO (09:29)
[2020-03-07] MEDS: QUEtiapine FUMARATE 25 MG TABLET PO SCH (10:09)
[2020-03-07] MEDS: LISINOPRIL 10 MG TABLET PO SCH (10:09)
[2020-03-07] MEDS: METOPROLOL TARTRATE 25 MG TABLET PO SCH (10:09)
[2020-03-07] MEDS: LORazepam 2 MG TABLET PO PRN (10:10)
[2020-03-07] MEDS: ASPIRIN 81 MG EC TABLET PO SCH (10:11)
== END 2020-03-07 11:20 | disposition home or self-care (01) | DRG 750 ==
LOC: EMS 08:12 → 3EI 17:24 → 3EX 02-13 19:42 → 3EI 02-27 21:24
PROVIDERS: ADMIT Psychiatry & Neurology Psychiatry; ATTEND Psychiatry & Neurology Psychiatry
DX: F20.0 Paranoid schizophrenia (principal); N17.9 Acute kidney failure, unspecified; E78.5 Hyperlipidemia, unspecified; I10 Essential (primary) hypertension; J44.9 Chronic obstructive pulmonary disease, unspecified; F41.9 Anxiety disorder, unspecified; E11.65 Type 2 diabetes mellitus with hyperglycemia; G47.00 Insomnia, unspecified; K21.9 Gastro-esophageal reflux disease without esophagitis; Z86.73 Personal history of transient ischemic attack (TIA), and cerebral infarction without residual deficits
CPT/HCPCS: 70450; 83036; 83735; 84100; 84443; 87426; 93005; 97116; 97162; 97167; 97530; 97535; G0378; G0480; J0696; J3490; Q0162